=== PATIENT | female | born 1965 | race Caucasian/White ===

== ENCOUNTER → 2017-03-05 13:57 | Emergency (ER) | payer MEDICARE, MEDICAID ==
[~2017-03-05 13:57] MED LIST: Enoxaparin(*) 80 MG/0.8 ML SYR SUBCUT ONE; LORazepam INJ* 2 MG/ML 1 ML VIAL IV PUSH ONE; Ondansetron INJ* 2 MG/ML VIAL IV ONE; Orphenadrine Citrate IV* 30 MG/ML 2 ML VIAL IV ONE; PROCHLORPERAZINE INJ 5 MG/ML 2 ML VIAL IV ONE
[2017-03-05 14:09] VITALS: BP 133/84
--- NOTE | 2017-03-05 15:06 | ED ---
Upper Extremity Pain - HPI Summary HPI Summary: 51 female presents to ED via EMS accompanied by daughter and son with complaints of right arm spasms that began around 11:30am today. She has never had these before. States they come and go, lasting ~ 10 seconds. States it has been becoming more frequent and intense. Originates in right neck area and radiates down. Admits to tingling, in between spasms. Denies history of seizures. Has not taken any medication for the spasms. States she usually wears a fentanyl patch that just had her dosage changed and she took it off yesterday. Just put another two on while in ED. PMHx significant for pancreatic cancer, thyroid disease, fibromyalgia, and RA. No other complaints. No trauma or injury. No tenderness or pain. No other complaints at this time other than feeling a little nauseous, however this is a chronic problem for her. - History of Current Complaint Chief Complaint: EDExtremityUpper Stated Complaint: PAIN IN RT ARM Time Seen by Provider: 03/05/17 14:18 Hx Obtained From: Patient Mechanism Of Injury: Unknown Onset/Duration: Started Hours Ago - 11:30am Timing: Intermittent, Lasting Seconds Severity Currently: Moderate Pain Location: Arm - right Character: Spasmodic Aggravating Factor(s): Movement Alleviating Factor(s): Nothing Associated Signs & Symptoms: Positive: Numbness/Tingling - tingling, Nausea, Vomiting Related History: Dominant Hand Right - Allergies/Home Medications Allergies/Adverse Reactions: Allergies Allergy/AdvReac Type Severity Reaction Status Date / Time Desvenlafaxine [From Pristiq] Allergy Mild Rash Verified 01/24/17 08:22 Home Medications: Home Medications Calcium W/ Vitamins D & K [Viactiv 500-500-40 mg-Unt-Mcg] 1 chw PO DAILY [History Confirmed 03/05/17] Cholecalciferol TAB* [Vitamin D TAB*] 2,000 units PO DAILY 03/05/17 [History Confirmed 03/05/17] Dronabinol CAP* [Marinol CAP*] 5 mg PO TID AC 03/05/17 [History Confirmed ] Eszopiclone (NF) [Lunesta (NF)] 3 mg PO BEDTIME 03/05/17 [History Confirmed 05/11] LevoCETirizine TAB (NF) [Xyzal TAB (NF)] 5 mg PO DAILY 03/05/17 [History Confirmed 03/05/17] Levothyroxine TAB* [Synthroid TAB*] 25 mcg PO DAILY 03/05/17 [History Confirmed 03/05/17] Levothyroxine TAB* [Synthroid TAB*] 200 mcg PO DAILY 03/05/17 [History Confirmed 03/05/17] Magnesium Oxide TAB* [MagOx 400 TAB*] 400 mg PO BID 03/05/17 [History Confirmed 03/05/17] Mirtazapine TAB* [Remeron TAB*] 7.5 mg PO BEDTIME 03/05/17 [History Confirmed ] Potassium Chlor TAB* [Klor Con ER TAB*] 20 meq PO DAILY 03/05/17 [History Confirmed 03/05/17] Sertraline* [Zoloft*] 150 mg PO DAILY 03/05/17 [History Confirmed 03/05/17] Topiramate TAB(*) [Topamax 100 mg tab] 100 mg PO BID 03/05/17 [History Confirmed 03/05/17] buPROPion SR TAB* [Wellbutrin SR TAB*] 450 mg PO QAM 03/05/17 [History Confirmed 03/05/17] fentaNYL PATCH 50 MCG/HR* [Duragesic PATCH 50 Mcg/Hr*] 50 mcg TRANSDERM Q72H [History Confirmed 03/05/17] oxyCODONE TAB* [Roxycodone TAB 5 mg*] 5 mg PO Q4H PRN 03/05/17 [History Confirmed 03/05/17] PMH/Surg Hx/FS Hx/Imm Hx Endocrine/Hematology History: Reports: Hx Thyroid Disease Respiratory History: Reports: Hx Sleep Apnea - current CPAP user GI History: Reports: Hx Gastroesophageal Reflux Disease Musculoskeletal History: Reports: Hx Rheumatoid Arthritis Sensory History: Reports: Hx Contacts or Glasses Opthamlomology History: Reports: Hx Contacts or Glasses Neurological History: Reports: Other Neuro Impairments/Disorders - concussions, fibromyalgia Psychiatric History: Reports: Hx Anxiety, Hx Depression - Cancer History Cancer Type, Location and Year: pancreatic cancer with chemo 2014 - Surgical History Surgery Procedure, Year, and Place: cholecystectomy, C-sections X2, 2001 thyroid surgery. wipple procedure 07/03/14 - Immunization History Immunizations Up to Date: Yes Infectious Disease History: No Infectious Disease History: Denies: Traveled Outside the [place] in Last 30 Days - Family History Known Family History: Positive: Cardiac Disease, Hypertension - Social History Alcohol Use: None Substance Use Type: Reports: None Smoking Status (MU): Former Smoker Review of Systems Constitutional: Negative Cardiovascular: Negative Respiratory: Negative Positive: Nausea Positive: Myalgia - spasms Skin: Negative Positive: Paresthesia - tingling of right arm after spasms All Other Systems Reviewed And Are Negative: Yes Physical Exam Triage Information Reviewed: Yes Vital Signs On Initial Exam: Initial Vitals Temp Pulse Resp BP Pulse Ox 98.0 F 84 18 133/84 100 03/05/17 14:01 03/05/17 14:01 03/05/17 14:01 03/05/17 14:01 03/05/17 14:01 Vital Signs Reviewed: Yes Appearance: Positive: Well-Appearing, No Pain Distress, Well-Nourished Skin: Positive: Warm, Skin Color Reflects Adequate Perfusion, Dry, Other - no ecchymosis or edema. Negative: Cold, Pale, Erythema @ Head/Face: Positive: Normal Head/Face Inspection Eyes: Positive: Conjunctiva Clear ENT: Positive: Hearing grossly normal Neck: Positive: Supple, Nontender Respiratory/Lung Sounds: Positive: Clear to Auscultation, Breath Sounds Present. Negative: Rales, Rhonchi, Wheezes Cardiovascular: Positive: Normal, RRR, Pulses are Symmetrical in both Upper and Lower Extremities - 2+ radial. Negative: Murmur, Rub Abdomen Description: Positive: Nontender, Soft Bowel Sounds: Positive: Present Musculoskeletal: Positive: Normal, Strength/ROM Intact - when not spasmping right arm/shoulder, Pain @ - during right arm muscle spasms, Other - no crepitus , step off, obvious deformity, ecchymosis or signs of trauma appears to be spasming muscles. no tenderness. she is totally coherent during arm spasms, does not appear to be seizure activity. Negative: Limited @, Interruption @ Neurological: Positive: Normal, Sensory/Motor Intact - sensation intact, Alert, Oriented to Person Place, Time, NV Bundle Intact Distally, Normal Gait Psychiatric: Positive: Affect/Mood Appropriate - Egan Coma Scale Coma Scale Total: 15 Diagnostics - Vital Signs Vital Signs Temp Pulse Resp BP Pulse Ox 03/05/17 14:01 98.0 F 84 18 133/84 100 - Laboratory Result Diagrams: 03/05/17 15:40 Lab Statement: Any lab studies that have been ordered have been reviewed, and results considered in the medical decision making process. Re-Evaluation - Re-Evaluation First Eval Re-Evaluation Time: 16:03 Change: Improved - patient had significant relief, has only had 1 spasms since medication, is relaxing comfortable. pending lab results. patient was signed out to Virginia Rubio patient is aware and understands. Course/Dx - Course Course Of Treatment: given norflex, ativan and anti-nausea medication. had relief. patient applied her prescribed fentayl patches while in ED. given fluids for her routine fluid infusion she missed due to having spasms. took her normal daily medicaitons otherwise. normal vitals. CBC CMP and electrolyte lab work obtained, unremarkable. had relief after medications. unknown source/ etiology. does not appear to be seizure or CVA symptoms, ruled out. No other complaints. Spoke with Dr Starr about case, who is in agreement. Patient was signed out to Virginia Rubio PA-C at shift change, pending lab results. - Diagnoses Provider Diagnoses: Muscle spasm - Physician Notifications Discussed Care of Patient With: Virginia Garcia PA-C shift change Time Discussed With Above Provider: 16:00 Discharge - Discharge Plan Condition: Stable Disposition: OTHER Discharge Disposition Comment: signed out to Virginia Rubio PA-C at 4pm at shift change Referrals: Abhinav Lieberman MD [Primary Care Provider] -
[2017-03-05] MEDS: NS 0.9% 1000 ML* 2,000 ML IV ONE (15:10)
[2017-03-05 15:53] LABS: Hematocrit 33 % (35-47); Hemoglobin 11.2 g/dl (12.0-16.0); Mean Corpuscular HGB Conc 34 g/dl (31-36); Mean Corpuscular Hemoglobin 30 pg (27-31); Mean Corpuscular Volume 90 fL (80-97); Mean Platelet Volume 7 um3 (7.4-10.4); Red Blood Count 3.71 10^6/ul (4.0-5.4); Red Cell Distribution Width 14 % (10.5-15); White Blood Count 2.3 10^3/ul (3.5-10.8)
[2017-03-05 16:02] LABS: Add Diff/Slide Review? Slide Review Added; Comments Flag Yes
[2017-03-05 16:09] LABS: Albumin 3.7 g/dL (3.2-5.2); BUN/Creatinine Ratio 15.3 (8-20); EGFR Non-African American 84.7 (>60); Globulin 2.4 g/dL (2-4); Magnesium 1.9 mg/dL (1.9-2.7); Potassium 3.5 mmol/L (3.5-5.0); Total Bilirubin 0.5 mg/dL (0.2-1.0); Total Protein 6.1 g/dL (6.4-8.9)
--- NOTE | 2017-03-05 17:14 | RAD ---
INDICATION: Right upper quadrant pain evaluate for RIGHT-sided thrombosis. Pancreatic carcinoma. COMPARISON: Venogram January 24, 2017 TECHNIQUE: Duplex interrogation of the right upperextremity was performed. FINDINGS: Deep veins: The visualized right internal jugular, visualized subclavian, axillary, brachial, basilic, cephalic, radial, and ulnar There is normal compressibility, augmentation, and phasic flow. Superficial veins: There are no findings of superficial thrombophlebitis. Soft tissues:There are no soft tissue abnormalities. Other: Limited imaging of the left upper extremity demonstrated thrombosis at the level of the subclavian, axial, and brachial veins at the site of PICC catheter insertion. IMPRESSION: 1. NO EVIDENCE OF DEEP VENOUS THROMBOSIS ON THE SYMPTOMATIC RIGHT UPPER EXTREMITY. 2. THROMBOSIS ABOUT THE LEFT-SIDED PICC CATHETER.
--- NOTE | 2017-03-05 17:27 | RAD ---
INDICATION: Neck pain COMPARISON: None TECHNIQUE: AP, lateral, and odontoid views were acquired FINDINGS: Bones: There are no acute bony findings. There are no significant osteoarthritic findings. Craniocervical junction: The odontoid and atlantodental interval are normal. Alignment: Normal Disc spaces: The disc spaces are well-maintained Soft tissues: There is a small soft tissue calcification the right neck which is likely calcific plaque in the carotid artery.. IMPRESSION: NO ACUTE BONY FINDINGS.
== END | disposition home or self-care (01) ==
LOC: ED 13:57
DX: T82.868A Thrombosis due to vascular prosthetic devices, implants and grafts, initial encounter (principal); M62.838 Other muscle spasm; Z87.891 Personal history of nicotine dependence; M79.7 Fibromyalgia; C25.9 Malignant neoplasm of pancreas, unspecified; E07.9 Disorder of thyroid, unspecified; M06.9 Rheumatoid arthritis, unspecified; Y82.8 Other medical devices associated with adverse incidents; Y92.9 Unspecified place or not applicable
CPT/HCPCS: 36415; 72040; 80053; 83605; 83735; 85025; 85610; 85730; 96360; 96374; 96375; 99282; J0780; J1650; J2060; J2360; J2405

== ENCOUNTER 2017-08-12 13:20 | Inpatient (IN) | payer MEDICAID, MEDICARE ==
[2017-08-12] MEDS ORDERED: Lidocaine 2% JELLY* 10 ML JELLY TOPICAL ONE (14:49)
[2017-08-12] MEDS ORDERED: Lidocaine 2% JELLY* 6 ML JELLY TOPICAL ONE (14:51)
[2017-08-12] MEDS: NS 0.9% 1000 ML*IV.FLUID IV ONE ×2 (15:06→17:19)
--- NOTE | 2017-08-12 15:10 | RAD ---
INDICATION: Shortness of breath, pancreatic cancer. COMPARISON: Comparison is made with a prior chest x-ray study from June 08, 2017. TECHNIQUE: AP and lateral views of the chest were obtained. FINDINGS: The heart is within normal limits in size. There is volume loss within the right lung and a right upper lobe infiltrate which is progressed from the prior study. There is a new infiltrate present which projects over the inferior aspect of the left hilum which is likely in the superior segment of the left lower lobe. There is a trace right pleural effusion. IMPRESSION: 1. RIGHT UPPER LOBE INFILTRATE DEMONSTRATING SLIGHT PROGRESSION. 2. NEW LEFT LOWER LOBE INFILTRATE. 3. TRACE RIGHT PLEURAL EFFUSION.
[2017-08-12 15:18] LABS: Hematocrit 31 % (35-47); Hemoglobin 10.2 g/dl (12.0-16.0); Mean Corpuscular HGB Conc 33 g/dl (31-36); Mean Corpuscular Hemoglobin 31 pg (27-31); Mean Corpuscular Volume 94 fL (80-97); Mean Platelet Volume 7 um3 (7.4-10.4); Platelet Count 222 10^3/ul (150-450); Red Blood Count 3.29 10^6/ul (4.0-5.4); Red Cell Distribution Width 19 % (10.5-15); White Blood Count 5.5 10^3/ul (3.5-10.8)
[2017-08-12 15:24] LABS: ABS Basophils 0 10^3/ul (0-0.2); ABS Eosinophils 0 10^3/ul (0-0.6); ABS Lymphocytes 0.9 10^3/ul (1.0-4.8); ABS Monocytes 0.4 10^3/ul (0-0.8); ABS Neutrophils 4.3 10^3/ul (1.5-7.7); ABS Nucleated RBC 0 10^3/ul; Eosinophil % 0.2 % (0-6); Lymphocyte % 15.9 % (25-47); Nucleated Red Blood Cells % 0.1
[2017-08-12 15:35] LABS: EGFR Non-African American 108.7 (>60)
[2017-08-12] MEDS ORDERED: Iohexol 350* (CONTRAST) 500 ML MDV IV ONE (15:49)
[2017-08-12] MEDS ORDERED: Prochlorperazine TAB* 10 MG PO PRN (16:56)
[2017-08-12] MEDS ORDERED: Ondansetron TAB* 4 MG PO PRN (16:56)
[2017-08-12] MEDS ORDERED: Azithromycin IV(*) 500 MG in NS 0.9% 250 ML* 250 ML IVPB SCH (17:00)
[2017-08-12] MEDS ORDERED: cefTRIAXone(*) 2 GM in NS 0.9% 100 ML* 100 ML IVPB SCH (17:00)
[2017-08-12] MEDS ORDERED: Acetaminophen TAB* 325 MG PO PRN (17:04)
[2017-08-12] MEDS ORDERED: cefTRIAXone(*) 2 GM ADDV.VIAL IVPB ONE (17:18)
--- NOTE | 2017-08-12 17:33 | RAD ---
INDICATION: Shortness of breath, pancreatic cancer, fever. COMPARISON: Comparison is made with a prior chest x-ray study from August 12, 2017. Correlation is also made with a prior CT angiogram of the chest from June 06, 2017. TECHNIQUE: A CT angiogram of the chest was performed with intravenous following intravenous injection of 50 ml of Omnipaque 350 nonionic contrast. Contiguous axial sections were obtained from the lung apices through the lung bases. Images were reconstructed in the coronal and sagittal planes. The patient received a total of 100 mL of contrast. The timing of the contrast on the first data set was suboptimal in the study was repeated. FINDINGS: There is relatively homogeneous opacification of the pulmonary arteries. No intraluminal filling defect or pulmonary embolism is seen. The heart is within normal limits in size. There is a trace pericardial effusion. The thoracic aorta is normal in caliber and demonstrates homogeneous contrast opacification. 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 Note is made of multiple collateral vessels within the chest, abdomen and perivertebral regions. On the prior study contrast is noted within the azygos vein which is no longer visualized and likely is also occluded. There is increased soft tissue density in the mediastinum some of which appears to represent collateral vessels although mediastinal lymphadenopathy cannot be excluded. There is a moderate size right pleural effusion. There are groundglass and consolidative infiltrates present in the right upper, right lower and left lower lobes most consistent with pneumonia. No significant focal osseous abnormality is seen. IMPRESSION: 1. NO EVIDENCE FOR PULMONARY EMBOLISM. 2. MODERATE SIZE RIGHT PLEURAL EFFUSION AND BILATERAL INFILTRATES MOST CONSISTENT WITH PNEUMONIA. 3. TRACE PERICARDIAL EFFUSION, UNCHANGED. 4. OCCLUSION OF THE SUPERIOR VENA CAVA, UNCHANGED.
[2017-08-12] MEDS ORDERED: Azithromycin IV* 500 MG ADVAN VIAL/BAG IVPB ONE (17:52)
[2017-08-12] MEDS: NS 0.9% 1000 ML* 1,000 ML IV SCH (18:15)
[2017-08-12] MEDS ORDERED: fentaNYL PATCH 12 MCG/HR TRANSDERM SCH (18:30)
[2017-08-12] MEDS: fentaNYL Patch Check Q Shift 1 NOTE SCH ×2 (19:30→21:04)
[2017-08-12] MEDS: buPROPion SR TAB.SR* 150 MG PO SCH (20:45)
[2017-08-12] MEDS: Mirtazapine TAB* 15 MG PO SCH (20:45)
[2017-08-12] MEDS: Sertraline* 100 MG TAB PO SCH (20:46)
[2017-08-12] MEDS: Topiramate TAB(*) 100 MG PO SCH (21:05)
--- NOTE | 2017-08-12 21:17 | ED ---
Lamberto Garcia Jason, scribed for Jamaica Gaviria MD on 08/12/17 at 1356 . Shortness of Breath - HPI Summary HPI Summary: This patient is a 51 year old F presenting to [facility] with a chief complaint of SOB since 2 days ago. The patient states that she has been experiencing diarrhea for 2 days and began to experience shortness of breath. She includes that she had a blood transfusion 08/09/17 nights ago and has a hx of blood clots and pancreatic cancer. She began chemotherapy in February and her last chemotherapy was 07/19/17. The patient rates the pain 5/10 in severity. Symptoms aggravated by nothing. Symptoms alleviated by nothing. Patient reports SOB, coughing, fever, diarrhea, weakness, feeling tired, chills, dry mouth, dehydration and blood boogers. Patient denies vomiting, loss of appetite. She is up to date on the flu vaccine. - History of Current Complaint Chief Complaint: EDShortnessOfBreath Time Seen by Provider: 08/12/17 13:45 Hx Obtained From: Patient Onset/Duration: Gradual Onset Timing: Constant Aggrevating Factors: Nothing Alleviating Factors: Nothing Associated Signs & Symptoms: Negative - vomiting, loss of appetite, Cough ( Nonproductive), Fever - Allergy/Home Medications Allergies/Adverse Reactions: Allergies Allergy/AdvReac Type Severity Reaction Status Date / Time desvenlafaxine Allergy Mild Rash Verified 08/10/17 13:34 Home Medications: Home Medications Diphenoxylat/Atrop 2.5-0.025M* [Lomotil TAB*] 1 tab PO BID MDD 2 tablets [History Confirmed 08/12/17] Eszopiclone (NF) [Lunesta (NF)] 3 mg PO DAILY MDD 1 08/12/17 [History Confirmed 08/12/17] Gabapentin CAP(*) [Neurontin 300 CAP(*)] 300 mg PO BID 08/12/17 [History Confirmed 08/12/17] Multivitamins/Minerals TAB* [Thera M Plus TAB*] 1 tab PO DAILY 08/12/17 [ History Confirmed 08/12/17] Ondansetron TAB* [Zofran 4 MG Tab*] 4 mg PO Q4HR PRN 08/12/17 [History Confirmed 08/12/17] Sertraline* [Zoloft*] 150 mg PO BEDTIME 08/12/17 [History Confirmed 08/12/17] Warfarin TAB(*) [Coumadin TAB(*)] 4 mg PO MOWEFR 08/12/17 [History Confirmed ] fentaNYL PATCH 12 MCG/HR * [Duragesic Patch 12 Mcg/Hr *] 12 mcg TRANSDERM Q72H 08/12/17 [History Confirmed 08/12/17] fentaNYL PATCH 25 MCG/HR* [Duragesic PATCH 25 Mcg/Hr*] 25 mcg TRANSDERM Q72H [History Confirmed 08/12/17] PMH/Surg Hx/FS Hx/Imm Hx Previously Healthy: No Endocrine/Hematology History: Reports: Hx Thyroid Disease Denies: Hx Diabetes Cardiovascular History: Denies: Hx Hypertension, Hx Pacemaker/ICD Respiratory History: Reports: Hx Sleep Apnea - current CPAP user GI History: Reports: Hx Gastroesophageal Reflux Disease History: Denies: Hx Dialysis, Hx Renal Disease Musculoskeletal History: Reports: Hx Rheumatoid Arthritis Sensory History: Reports: Hx Contacts or Glasses, Hx Hearing Aid Opthamlomology History: Reports: Hx Contacts or Glasses Neurological History: Reports: Other Neuro Impairments/Disorders - concussions, fibromyalgia Psychiatric History: Reports: Hx Anxiety, Hx Depression Denies: Hx Panic Disorder - Cancer History Cancer Type, Location and Year: pancreatic cancer with chemo 2014. CURRENT CHEMO TX EVERY TWO WEEKS. - Surgical History Surgery Procedure, Year, and Place: cholecystectomy, C-sections X2, 2001 thyroid surgery. wipple procedure 07/03/14, PORT PLACEMENT, BILATERAL CARPAL TUNNEL Infectious Disease History: No Infectious Disease History: Denies: Traveled Outside the [place] in Last 30 Days - Family History Known Family History: Positive: Cardiac Disease, Hypertension - Social History Alcohol Use: None Substance Use Type: Reports: None Smoking Status (MU): Former Smoker Review of Systems Positive: Fever - 100.3 degrees, Chills, Other - "feeling dehydrated with blood boogers" ENT: Other - dry mouth Positive: Shortness Of Breath, Cough - non productive Gastrointestinal: Negative - loss of appetite Positive: Diarrhea, Other. Negative: Vomiting Positive: Weakness All Other Systems Reviewed And Are Negative: Yes Physical Exam - Summary Physical Exam Summary: Appearance: Ill-appearing, emaciated, moderate pain distress, Well-nourished Skin: Warm, color reflects adequate perfusion. No rash. Head: Normal Head/Face inspection Eyes: Conjunctiva clear ENT: Normal inspection, oral mucosa is moist. Dried blood at the nares. Neck: Supple, no nodes, no JVD. Respiratory: Lungs clear, decreased breath sounds bilaterally, no respiratory distress Cardio: RRR, No murmur, pulses normal, brisk capillary refill Abdomen: soft, nontender, Her port is in the right upper quadrant of the abdomen. Bowel sounds: present Musculoskeletal: Strength Intact/ ROM intact. No calf tenderness. No edema. Neuro: Alert, muscle tone normal, facial symmetry, speech normal, sensory/motor intact Psychological: Normal Triage Information Reviewed: Yes Vital Signs On Initial Exam: Initial Vitals Temp Pulse Resp BP Pulse Ox 99.5 F 100 22 116/70 98 08/12/17 13:25 08/12/17 13:25 08/12/17 13:25 08/12/17 13:25 08/12/17 13:25 Vital Signs Reviewed: Yes Diagnostics - Vital Signs Vital Signs Temp Pulse Resp BP Pulse Ox 08/12/17 13:25 99.5 F 100 22 116/70 98 - Laboratory Lab Results: Lab Results 08/12/17 08/12/17 08/12/17 Range/Units 15:05 15:05 15:05 WBC 5.5 (3.5-10.8) 10^3/ul RBC 3.29 L (4.0-5.4) 10^6/ul Hgb 10.2 L (12.0-16.0) g/dl Hct 31 L (35-47) % MCV 94 (80-97) fL MCH 31 (27-31) pg MCHC 33 (31-36) g/dl RDW 19 H (10.5-15) % Plt Count 222 (150-450) 10^3/ul MPV 7 L (7.4-10.4) um3 Neut % (Auto) 77.0 (38-83) % Lymph % (Auto) 15.9 L (25-47) % Free[place] % (Auto) 6.6 (1-9) % Eos % (Auto) 0.2 (0-6) % Baso % (Auto) 0.3 (0-2) % Absolute Neuts (auto) 4.3 (1.5-7.7) 10^3/ul Absolute Lymphs (auto) 0.9 L (1.0-4.8) 10^3/ul Absolute Monos (auto) 0.4 (0-0.8) 10^3/ul Absolute Eos (auto) 0 (0-0.6) 10^3/ul Absolute Basos (auto) 0 (0-0.2) 10^3/ul Absolute Nucleated RBC 0 10^3/ul Nucleated RBC % 0.1 ESR 62 H (0-30) mm/Hr INR (Anticoag Therapy) (0.77-1.02) APTT (26.0-36.3) seconds Sodium 136 (133-145) mmol/L Potassium 3.3 L (3.5-5.0) mmol/L Chloride 109 (101-111) mmol/L Carbon Dioxide 18 L (22-32) mmol/L Anion Gap 9 (2-11) mmol/L BUN 9 (6-24) mg/dL Creatinine 0.58 (0.51-0.95) mg/dL Est GFR ( Amer) 139.9 (>60) Est GFR (Non-Af Amer) 108.7 (>60) BUN/Creatinine Ratio 15.5 (8-20) Glucose 78 (70-100) mg/dL Lactic Acid 0.7 (0.5-2.0) mmol/L Calcium 8.6 (8.6-10.3) mg/dL Total Bilirubin 0.60 (0.2-1.0) mg/dL AST 16 (13-39) U/L ALT 19 (7-52) U/L Alkaline Phosphatase 93 (34-104) U/L Troponin I 0.00 (<0.04) ng/mL Total Protein 5.9 L (6.4-8.9) g/dL Albumin 3.0 L (3.2-5.2) g/dL Globulin 2.9 (2-4) g/dL Albumin/Globulin Ratio 1.0 (1-3) 08/12/17 Range/Units 15:05 WBC (3.5-10.8) 10^3/ul RBC (4.0-5.4) 10^6/ul Hgb (12.0-16.0) g/dl Hct (35-47) % MCV (80-97) fL MCH (27-31) pg MCHC (31-36) g/dl RDW (10.5-15) % Plt Count (150-450) 10^3/ul MPV (7.4-10.4) um3 Neut % (Auto) (38-83) % Lymph % (Auto) (25-47) % Freeborn % (Auto) (1-9) % Eos % (Auto) (0-6) % Baso % (Auto) (0-2) % Absolute Neuts (auto) (1.5-7.7) 10^3/ul Absolute Lymphs (auto) (1.0-4.8) 10^3/ul Absolute Monos (auto) (0-0.8) 10^3/ul Absolute Eos (auto) (0-0.6) 10^3/ul Absolute Basos (auto) (0-0.2) 10^3/ul Absolute Nucleated RBC 10^3/ul Nucleated RBC % ESR (0-30) mm/Hr INR (Anticoag Therapy) 2.00 H (0.77-1.02) APTT 39.2 H (26.0-36.3) seconds Sodium (133-145) mmol/L Potassium (3.5-5.0) mmol/L Chloride (101-111) mmol/L Carbon Dioxide (22-32) mmol/L Anion Gap (2-11) mmol/L BUN (6-24) mg/dL Creatinine (0.51-0.95) mg/dL Est GFR ( Amer) (>60) Est GFR (Non-Af Amer) (>60) BUN/Creatinine Ratio (8-20) Glucose (70-100) mg/dL Lactic Acid (0.5-2.0) mmol/L Calcium (8.6-10.3) mg/dL Total Bilirubin (0.2-1.0) mg/dL AST (13-39) U/L ALT (7-52) U/L Alkaline Phosphatase (34-104) U/L Troponin I (<0.04) ng/mL Total Protein (6.4-8.9) g/dL Albumin (3.2-5.2) g/dL Globulin (2-4) g/dL Albumin/Globulin Ratio (1-3) Result Diagrams: 08/12/17 15:05 08/12/17 15:05 Lab Statement: Any lab studies that have been ordered have been reviewed, and results considered in the medical decision making process. - Radiology CXR Radiology Interpretation Completed By: Radiologist - 1. RIGHT UPPER LOBE INFILTRATE DEMONSTRATING SLIGHT PROGRESSION. 2. NEW LEFT LOWER LOBE INFILTRATE. 3. TRACE RIGHT PLEURAL EFFUSION. ED physician has reviewed this radiology report. - CT chest CT Interpretation Completed By: Radiologist - 1. NO EVIDENCE FOR PULMONARY EMBOLISM. 2. MODERATE SIZE RIGHT PLEURAL EFFUSION AND BILATERAL INFILTRATES MOST CONSISTENT WITH PNEUMONIA. 3. TRACE PERICARDIAL EFFUSION, UNCHANGED. 4. OCCLUSION OF THE SUPERIOR VENA CAVA, UNCHANGED. ED physician has reviewed this radiology report - EKG 1423 Cardiac Rate: NL EKG Rhythm: Sinus Rhythm - [address] Segment: Non-Specific Ectopy: None EKG Interpretation: normal AVIVCT, normal QTc, normal axis EKG Comparison: No Significant Change - from 06/05/2017 Re-Evaluation - Re-Evaluation First Eval Re-Evaluation Time: 15:15 Change: Worse Comment: The patient's temperature is 100.4 degrees farenheit. Course/Dx - Course Course Of Treatment: Influenza A and B test results are negative. We discussed patient care with Dr. Nava and they recommended admission. We informed the patient of the EKG and CXR results and discusses Dr. Blake recommendation. The patient is agreeable with this plan. Medications reviewed. Allergies noted. - Diagnoses Provider Diagnoses: Bilateral pneumonia, Pleural effusion, right Discharge - Discharge Plan Condition: Good Disposition: ADMITTED TO [facility] documentation as recorded by the Lamberto doran Jason accurately reflects the service I personally performed and the decisions made by , Jamaica Gaviria MD.
[2017-08-12 21:22] LABS: Urine Appearance Clear; Urine Blood Negative (Negative); Urine Color Yellow; Urine Ketones Negative (Negative); Urine Protein Negative (Negative); Urine Specific Gravity 1.045 (1.010-1.030); Urine Urobilinogen Negative (Negative)
[2017-08-12] MEDS ORDERED: Potassium Chlor TAB* 20 MEQ TAB.ER PO ONE (22:32)
[2017-08-13] MEDS: NS 0.9% 1000 ML* 1,000 ML IV SCH ×4 (05:23→17:59)
[2017-08-13] MEDS ORDERED: Levothyroxine TAB* 125 MCG TAB PO SCH (06:00)
[2017-08-13 06:42] LABS: EGFR Non-African American 100.7 (>60)
[2017-08-13 06:44] LABS: ABS Basophils 0 10^3/ul (0-0.2); ABS Eosinophils 0 10^3/ul (0-0.6); ABS Lymphocytes 0.7 10^3/ul (1.0-4.8); ABS Monocytes 0.4 10^3/ul (0-0.8); ABS Neutrophils 4.8 10^3/ul (1.5-7.7); ABS Nucleated RBC 0 10^3/ul; Eosinophil % 0.6 % (0-6); Hematocrit 31 % (35-47); Hemoglobin 10.2 g/dl (12.0-16.0); Lymphocyte % 11.5 % (25-47); Mean Corpuscular HGB Conc 34 g/dl (31-36); Mean Corpuscular Hemoglobin 32 pg (27-31); Mean Corpuscular Volume 94 fL (80-97); Mean Platelet Volume 7 um3 (7.4-10.4); Nucleated Red Blood Cells % 0; Platelet Count 244 10^3/ul (150-450); Red Blood Count 3.23 10^6/ul (4.0-5.4); Red Cell Distribution Width 18 % (10.5-15); White Blood Count 5.9 10^3/ul (3.5-10.8)
[2017-08-13 06:55] LABS: INR 1.73 (0.77-1.02)
[2017-08-13] MEDS: fentaNYL Patch Check Q Shift 1 NOTE SCH ×2 (06:59→18:51)
--- NOTE | 2017-08-13 09:01 | HP ---
HISTORY AND PHYSICAL: DATE OF ADMISSION: 08/12/17 - ROOM #420 REASON FOR ADMISSION: Shortness of breath, confusion, diarrhea in the setting of known metastatic pancreatic cancer. HISTORY OF PRESENT ILLNESS: Josefina Womack is a 51-year-old female with a diagnosis of pancreatic cancer 3 years ago and has been followed in our office by Dr. Dan since December 2016. It was at that time, that she was discovered to have metastatic carcinoma. She received chemotherapy for limited amount of metastatic disease with FOLFIRINOX with irinotecan stopping after cycle 5 and therapy stopping after cycle 10 on 06/26/17 due to increasing nausea, vomiting, and extreme fatigue. She has done reasonably well since that period of time until the last week or so. She had laboratory studies done last on . At that time, she was found to have an elevated INR at 4.37 even though her previous INRs with same dose of Coumadin have all been subtherapeutic. At the same time, she was found to have a significant increase in anemia with her H and H being down from approximately 9, down to 7.6. She received a total of 3 units of packed red blood cells, although one of the units was stopped early due to fever to 101.8. She had no other signs of infection at that time and subsequently her hemoglobin had come up to 10.2. She noticed the following day on 08/10/17 that she had increasing confusion and decreased coordination although this had been going on for approximately 1 week and progressing. She reports the last day or two, this has been slightly better. She typically walks independently, although she has fallen several times over the past 1 to 2 weeks. Her speech is more slurred recently as well. She is not aware that one side is weaker than the other. She has had some headache above the eye still present, but helped by Advil. Because of this, an MRI of the brain was obtained 2 days ago, which did not reveal any significant abnormalities. Over the past 48 hours, she has developed diarrhea along with increasing shortness of breath despite having had the blood transfusion. She is having a pain, which she rates as 5/10, mostly in the chest. This has been present for about 1 month, but increasing recently. Her breathing is more labored, not worse today, but worse over the last 1 to 2 weeks. She has had a dry cough. She was unaware of the fever at any point other than during the blood transfusion until arriving in the emergency room, when she was found to have a temperature of 100.4. It should be noted that she was not taking her temperature at home. She denies any nausea, vomiting or abdominal pain. She was found in the emergency room on chest x-ray to have a persistent infiltrate, although somewhat improved in the right upper lobe and to have a simultaneous left lower lobe infiltrate. PAST MEDICAL HISTORY: In regard to the pancreatic carcinoma, she had abdominal pain and fatigue in 2013 and was evaluated by GI in [place] and found to have pancreatic carcinoma. She had surgery on 07/03/14 revealing a mildly differentiated pancreatic adenocarcinoma 3 cm with negative margins and negative lymph nodes, [id number]. She had 4 weeks of postoperative TPN. She had no adjuvant chemotherapy. She was followed by routine CT scans every 3 months until June 2016 when she developed abdominal pain as well as feeling much more weak and fatigue. Pain was rated as 7/10. CT scan in the spring was unremarkable. She also had an MRI of the abdomen and an endoscopic ultrasound, which were unrevealing. PET scan of 12/14/16 showed soft tissue lesions in the anterior abdominal wall with an elevated SUV of 11, one of the lesions was adjacent to the ascending colon with an elevated SUV at 16. In addition, there was a 1 cm right lower quadrant lesion with an SUV of 7. There were no abnormalities noted in the liver or other organs. She was planned to have Gemzar and Abraxane in [place], but then sought second opinion at [facility] in [facility] and with Dr. Ni huddleston in [place]. After she was felt not to be a candidate for a clinical trial at [facility], she was started on chemotherapy with FOLFIRINOX on 02/12/17. PET scan after cycle 3 revealed complete response in the abdomen. Irinotecan was stopped after cycle 5. Repeat PET scan in June 2017 revealed continued complete response. Therapy has been held since 06/26/17. In the midst of this therapy, she was planned to have an Rdsil-k-Htaz placed, but on the imaging studies done by Dr. Davila while trying to place the central line, she was found to have significant clot present and blocked vessels. She was placed on Coumadin. This was back in January 2017 with a blocked SVC. In February 2017, she was found to have thrombus around her PICC line. She has been on Coumadin since early in the fall and has had therapeutic levels for the most part until recently, and then as noted above with markedly elevated level of 4, three days ago. Associated with this, she had the anemia, which was much more than before. She denies any bleeding other than occasional nose bleeds. Approximately 1 month ago, a port was put in the abdomen as she was unable to have a port in the chest due to her superior vena cava blockage. She has had some infections including likely pneumonia, although she and her daughter do not remember the details, although believes this may have been around May. Past medical history otherwise significant for depression, cholelithiasis, hyperthyroidism, and hypothyroidism now that she is status post radiation therapy. History of rheumatoid arthritis and SLE. Status post cholecystectomy. Status post Whipple surgery in 2014, status post . FAMILY HISTORY: Father with prostate cancer. No other cancers in the family. SOCIAL HISTORY: The patient is single, quit smoking 9 years ago. Smoked a pack per day for 26 years. Occasional alcohol. 2 children, one living nearby in [place] near [facility]. Has a good support system in place with siblings. She is not working. She lives with a significant other, Zackery Deras. MEDICATIONS: At the present time include: 1. Aspirin 81 mg daily. 2. Cholecalciferol 2000 units daily. 3. Fentanyl patch, unclear whether she takes 12 or 25 mcg every 3 days and she gives a confusing story of using 1 patch for 3 days and then alternating with the other just recently. 4. Levothyroxine 250 mcg daily. 5. Lunesta 3 mg at h.s. 6. Omeprazole 40 mg daily. 7. Oxycodone 5 mg q. 4 hours p.r.n. 8. Plaquenil 200 mg daily. 9. Topiramate 100 mg b.i.d.. 10. Viactiv 1 tablet daily. 11. Wellbutrin 450 mg SR daily. 12. Xyzal 5 mg daily. 13. Zoloft 150 mg daily. 14. Mirtazapine 15 mg daily. 15. Zofran 4 mg q. 4 hours p.r.n. 16. Coumadin 4 mg daily, held since 3 days ago. 17. Compazine 10 mg p.r.n. ALLERGIES: No known drug allergies other than to PRISTIQ. REVIEW OF SYSTEMS: Weight has actually improved recently, it went down to 88 pounds; then she stopped chemotherapy and is now up to 95 and her diarrhea had stopped and recently resumed. She has had no nausea, vomiting or abdominal pain , just recently. Neurologic complaints, as discussed above. Respiratory and cardiac symptoms as described above as well. The patient describes some tingling in her fingertips on trial of carboplatin, tried the gabapentin, but stopped it due to severe drug side effects including "driving me crazy." PHYSICAL EXAMINATION GENERAL: A 51-year-old female in no acute distress. Appears slightly emaciated , but in no acute distress. VITAL SIGNS: Blood pressure 116/70, pulse 100, O2 saturation 98%. T-max 100.4 and temperature 99.5. HEENT: PERRL. Dry mucus membranes and dried blood in the nares. No palpable cervical, supraclavicular, or axillary adenopathy. LUNGS: Clear. No rales, wheezes or rhonchi. HEART: Regular rate and rhythm without murmurs, rubs, or gallops. ABDOMEN: Soft, nontender without guarding or rebound. No masses or organomegaly. Port in the right upper quadrant of the abdomen. EXTREMITIES: No clubbing, cyanosis or edema. BACK: No CVA or spinal tenderness. NEUROLOGIC: Exam, the patient is alert and oriented x3. Speech is somewhat slurred and per her family, not at her usual. She does show some significant weakness in bilateral extremities, more so weakness in the lower extremities, but are fairly symmetric. Sensation is intact throughout. Cranial nerves II through XII are intact although there might be a slight facial asymmetry. DIAGNOSTIC STUDIES/LAB DATA: CBC with a white count of 5500, hematocrit 31, hemoglobin 10.2, platelet count 222,000 with an essentially normal machine differential. Chemistry studies: Sodium 136, potassium 3.3, bicarb 18, chloride 109, BUN 9, creatinine 0.58, glucose 78. Lactic acid 1.2. Magnesium 1.7 three days ago. LFTs otherwise normal, albumin of 3.0. Previous TSH 0.09 on 07/31/17. INR of 2.0, having been over 4 three days ago and Coumadin held since. Urinalysis with a high specific gravity of 1.045, but otherwise negative. Rapid influenza is negative. Microbiology cultures pending. Chest x-ray as noted above reveals an infiltrate that is improving in the right upper lobe and a new left lower lobe infiltrate. CTA performed revealing no evidence of pulmonary emboli. Bilateral pulmonary infiltrates. These are present in the right upper lobe and in the left lower lobe. In addition, there is occlusion of the superior venous cava which seems similar to prior exams. There are multiple collateral vessels present within the chest, with a moderate sized right pleural effusion. No evidence of metastatic disease. Small pericardial effusion is present. IMPRESSION: 1. Constellation of symptoms, which are difficult to put together into a single recent disease process. She does have bilateral infiltrates which are worse, especially on the left. This is associated with shortness of breath, chest pain, nonproductive cough, and fever, certainly consistent with a pneumonia. She has been started empirically on antibiotics for community- acquired pneumonia with ceftriaxone 2 g daily along with Zithromax 500 mg IV daily. 2. Recent increased confusion and decreased coordination. Recent MRI of the brain was unremarkable, but her family does report some increase in slurred speech. Neurologic consultation will be obtained on 08/13/17 to further work this up. She has also had a recent headache over the right eye, which is helped with Advil. 3. Recent drop in her hematocrit associated with an elevated INR at a time when her dose of Coumadin had not changed and when she had not had significant bleeding or bruising episodes. It is unclear as to why this happened. She, currently has an INR 2.0 and I will have it rechecked again in the morning and it is likely that she will be resumed on her Coumadin at the typical dose of 4 mg daily. She is known to have a superior vena cava blockage and this is still present on her current imaging. 4. Pancreatic carcinoma. She currently has no reactive disease on most recent imaging and has been off chemotherapy for approximately 6 weeks. 5. Pain under good control. Takes, per her telling, a very strange regimen of narcotics, we will try after discussion with Dr. Dan. 6. History of depression. On Zoloft and Wellbutrin. 7. History of hypothyroidism. On 250 mcg of levothyroxine a day. Level will be rechecked, most recent was 0.09 two weeks ago. 8. History of rheumatologic conditions and has been on Plaquenil. [id number]/[facility] #: [id number] [facility]
[2017-08-13] MEDS: buPROPion SR TAB.SR* 150 MG PO SCH ×2 (09:13→20:01)
[2017-08-13] MEDS: Cholecalciferol TAB* 1000 UNITS PO SCH (09:13)
[2017-08-13] MEDS: Omeprazole CAP* 20 MG PO SCH (09:13)
[2017-08-13] MEDS: Cetirizine* 10 MG TAB PO SCH (09:14)
[2017-08-13] MEDS: Topiramate TAB(*) 100 MG PO SCH ×2 (09:21→20:02)
[2017-08-13] MEDS ORDERED: Diphenoxylat/Atrop 2.5-0.025M* 1 TAB PO PRN (10:00)
[2017-08-13] MEDS: Potassium Chlor TAB* 20 MEQ TAB.ER PO SCH ×2 (10:50→20:01)
[2017-08-13] MEDS: Warfarin TAB(*) 4 MG PO SCH (16:59)
[2017-08-13] MEDS: Mirtazapine TAB* 15 MG PO SCH (16:59)
[2017-08-13] MEDS: cefTRIAXone(*) 2 GM in NS 0.9% 100 ML* 100 ML IVPB SCH (16:59)
[2017-08-13] MEDS: Azithromycin IV(*) 500 MG in NS 0.9% 250 ML* 250 ML IVPB SCH (17:59)
[2017-08-13] MEDS: Sertraline* 100 MG TAB PO SCH (19:59)
--- NOTE | 2017-08-13 21:03 | CONS ---
CONSULTATION REPORT: DATE OF CONSULT: 08/13/17 PATIENT OF: Dr. Nava. HISTORY OF PRESENT ILLNESS: This is a 51-year-old woman, asked to evaluate for confusion, hallucinations, and imbalance in the setting of diarrhea and metastatic pancreatic cancer. She notes that she began having hallucinations where she would see a car coming to her while she was driving with a friend and the car was not coming. She would also carry on conversations with people, who were not there and could hear and see them. This was happening over the course of last week and was getting worse and therefore she had an MRI scan done. She had some confusion and somewhat disoriented. She had some progressive shortness of breath, which was actually why she was brought in by family yesterday and was found to have a pneumonia. Her sister who is with her at bedside notes that she is much less confused now then she was even yesterday. She has had a past history of hallucinations and confusion at the time of a concussion; she had episode for concussion and that was about 6 years ago and she had some mild white matter disease back then as well. She has had no overt seizures ever. Of note, she has been more unsteady on her feet and had to touch the wall. This was happening last week again. She is somewhat better today. She has a history of numbness and tingling in the hands and feet that have been attributed to her chemotherapy, but the numbness and tingling have not worsened in the past few weeks' time. She did have a low- grade fever to 100.5, but is currently afebrile. She presented with her pancreatic cancer 3 years ago and was found to have metastatic carcinoma in December of 2016, receiving chemotherapy as outlined by Dr. Nava. She has also had some diarrhea most recently and has had infiltrates on her chest x-ray. PAST MEDICAL HISTORY: Significant for her pancreatic cancer, chest wall lesions on a November 2016 PET scan. She has a history of depression, cholecystitis, hyperthyroidism, hypothyroidism , history of rheumatoid arthritis, and SLE. PAST SURGICAL HISTORY: She is status post Whipple's procedure in 2014 and C- section. MEDICATIONS: Upon admission include: 1. Aspirin 81 mg daily. 2. Calciferol 1000 units daily. 3. Fentanyl patch. 4. Levothyroxine 250 mcg daily. 5. Lunesta 3 mg at bedtime. 6. Omeprazole 40 mg daily. 7. Oxycodone 5 mg p.r.n. 8. Plaquenil 200 mg daily. 9. Topamax 100 b.i.d. 10. Viactiv 1 tab daily. 11. Wellbutrin 450 q. day. 12. Xyzal 5 mg daily. 13. Zoloft 150 mg daily. 14. Mirtazapine 15 mg daily. 15. Zofran 4 mg p.r.n. 16. Coumadin 4 mg daily, held since 3 days ago. 17. Compazine 10 mg p.r.n. ALLERGIES: She is allergic to PRISTIQ. FAMILY HISTORY: Father with prostate cancer. No other cancers in the family. SOCIAL HISTORY: She is single and quit smoking 9 years ago, but smoked a pack a day for 26 years. She does not drink or use drugs. REVIEW OF SYSTEMS: Significant for her weight loss, but actually improved recently. She has had some diarrhea that has been intermittent and respiratory symptoms and neurological complaints as noted above. Otherwise, review of systems, all 14 spheres, is negative. PHYSICAL EXAM: Temperature 98.2, pulse 79, respirations 20, blood pressure 116/ 67. She is alert and oriented. She knew not only her place that she was at [facility] but that she was on the 4th floor. She knew her age and date. Her speech is fluent with good naming of things and she and her sister agreed that she was back to her baseline or very close back to her baseline; this is a significant improvement. Cranial nerves II through XII were intact. Fundi were benign. Motor exam revealed normal tone. She was generally debilitated, but strength appeared full 5/5. [id number]-[id number] is intact. She is mildly unsteady on her Romberg, but she felt more steady on her feet than she has in the recent past. Reflexes were 1 and equal. Sensation is intact to light touch. Chest: Clear. Cardiovascular: Regular rate and rhythm. Abdomen: Soft with positive bowel sounds. DIAGNOSTIC STUDIES/LAB DATA: I reviewed her MRI scan from Sunday with and without contrast, which showed some mild white matter disease, no enhancing lesions. Her recent labs showed a white count of 5.9, hematocrit 31, platelet count of 244. Sed rate of 62. INR 1.73, PTT 39.2. TSH 0.12. Her potassium was 3.4. Most recently CMP was normal other than albumin of 3, total protein of 5.9. Influenza testing negative. UA was negative other than specific gravity of 1.045. ASSESSMENT AND PLAN: I discussed with Josefina and her sister that I think her confusion, disorientation, and hallucinations were probably from pneumonia and she is significantly better now that she is being treated with antibiotics including azithromycin and she has tendency towards hallucinations in the past when she had her concussion and when she has other medical conditions, it may cause this problem and it could have exacerbated underlying neuropathy as well that she had with from her chemotherapy. I will check an EEG to screen for seizures. I discussed that there are other possibilities such as paraneoplastic syndrome or subacute meningitis, but these are extremely unlikely given the time course that she has, but unless she fluctuates and goes on to have significant hallucinations, disorientation, I would not pursue these other things in the near future. Thank you for sharing her case. [id number]/[facility] #: [id number] NICK
[2017-08-13] MEDS: Zolpidem TAB* 10 MG PO PRN (21:07)
[2017-08-14] MEDS: Levothyroxine TAB* 125 MCG TAB PO SCH (05:44)
[2017-08-14] MEDS: Levothyroxine TAB* 100 MCG TAB PO SCH (05:44)
[2017-08-14] MEDS: fentaNYL Patch Check Q Shift 1 NOTE SCH ×2 (06:58→18:48)
[2017-08-14 07:26] LABS: ABS Basophils 0 10^3/ul (0-0.2); ABS Eosinophils 0.1 10^3/ul (0-0.6); ABS Lymphocytes 0.8 10^3/ul (1.0-4.8); ABS Monocytes 0.3 10^3/ul (0-0.8); ABS Neutrophils 3.6 10^3/ul (1.5-7.7); ABS Nucleated RBC 0 10^3/ul; Eosinophil % 1.7 % (0-6); Hematocrit 33 % (35-47); Hemoglobin 11.1 g/dl (12.0-16.0); Lymphocyte % 16.6 % (25-47); Mean Corpuscular HGB Conc 34 g/dl (31-36); Mean Corpuscular Hemoglobin 32 pg (27-31); Mean Corpuscular Volume 95 fL (80-97); Mean Platelet Volume 8 um3 (7.4-10.4); Nucleated Red Blood Cells % 0.2; Platelet Count 255 10^3/ul (150-450); Red Blood Count 3.47 10^6/ul (4.0-5.4); Red Cell Distribution Width 19 % (10.5-15); White Blood Count 4.8 10^3/ul (3.5-10.8)
[2017-08-14 07:40] LABS: EGFR Non-African American 100.7 (>60)
[2017-08-14] MEDS: NS 0.9% 1000 ML* 1,000 ML IV SCH ×3 (08:30→16:42)
[2017-08-14] MEDS: buPROPion SR TAB.SR* 150 MG PO SCH ×2 (09:28→20:06)
[2017-08-14] MEDS: Cholecalciferol TAB* 1000 UNITS PO SCH (09:28)
[2017-08-14] MEDS: Cetirizine* 10 MG TAB PO SCH (09:28)
[2017-08-14] MEDS: Topiramate TAB(*) 100 MG PO SCH ×2 (09:28→20:06)
[2017-08-14] MEDS: Omeprazole CAP* 20 MG PO SCH (09:28)
[2017-08-14] MEDS: Potassium Chlor TAB* 20 MEQ TAB.ER PO SCH (09:29)
--- NOTE | 2017-08-14 11:43 | EEG ---
ELECTROENCEPHALOGRAPHY: DATE OF STUDY: - ROOM #420 DATE OF DICTATION: 08/13/17 PATIENT OF: Dr. Ortiz. CLINICAL PROBLEM: This is a 51-year-old woman with episodes of confusion and diarrhea with some coordination issues. MEDICATIONS: Include: 1. Aspirin. 2. Cholecalciferol. 3. Levothyroxine. 4. Lunesta. 5. Omeprazole. 6. Oxycodone. 7. Plaquenil. 8. Topamax. 9. Viactiv. 10. Wellbutrin. 11. Xyzal. 12. Zoloft. 13. Mirtazapine. 14. Zofran. 15. Coumadin. 16. Compazine. REPORT: With the patient awake, background cerebral activity consists of moderate amplitude, posterior dominant 9 to 10 Hz rhythm, which attenuates with eye opening, reappears with eye closure. Neither hyperventilation or photic stimulation activate the record. At times, there is muscle movement artifact. The patient never falls asleep. No epileptiform potentials, focal abnormalities or major asymmetries of background are noted. CLINICAL IMPRESSION: This awake EEG is within normal limits. [id number]/[facility] #: [id number] [facility]
[2017-08-14] MEDS: cefTRIAXone(*) 2 GM in NS 0.9% 100 ML* 100 ML IVPB SCH (16:25)
[2017-08-14] MEDS: Mirtazapine TAB* 15 MG PO SCH (16:58)
[2017-08-14] MEDS: Warfarin TAB(*) 4 MG PO SCH (16:58)
[2017-08-14] MEDS: Azithromycin IV(*) 500 MG in NS 0.9% 250 ML* 250 ML IVPB SCH (16:58)
[2017-08-14] MEDS: Sertraline* 100 MG TAB PO SCH (20:05)
[2017-08-14] MEDS: Zolpidem TAB* 10 MG PO PRN (20:10)
[2017-08-14] MEDS ORDERED: Potassium Chloride LIQUID* 20 MEQ PACKET PO SCH (21:00)
[2017-08-15] MEDS: Levothyroxine TAB* 125 MCG TAB PO SCH (05:51)
[2017-08-15] MEDS: NS 0.9% 1000 ML* 1,000 ML IV SCH ×2 (05:52→08:22)
[2017-08-15] MEDS: Levothyroxine TAB* 100 MCG TAB PO SCH (05:52)
[2017-08-15 06:46] LABS: INR 1.51 (0.77-1.02)
[2017-08-15 06:49] LABS: EGFR Non-African American 93.7 (>60)
[2017-08-15] MEDS: fentaNYL Patch Check Q Shift 1 NOTE SCH (07:00)
[2017-08-15 08:00] VITALS: BP 118/59
[2017-08-15] MEDS: Cholecalciferol TAB* 1000 UNITS PO SCH (08:15)
[2017-08-15] MEDS: Cetirizine* 10 MG TAB PO SCH (08:16)
[2017-08-15] MEDS: Omeprazole CAP* 20 MG PO SCH (08:16)
[2017-08-15] MEDS: Topiramate TAB(*) 100 MG PO SCH (08:16)
[2017-08-15] MEDS: buPROPion SR TAB.SR* 150 MG PO SCH (08:16)
[2017-08-15] MEDS ORDERED: Potassium Chlor TAB* 20 MEQ TAB.ER PO SCH (09:00)
--- NOTE | 2017-08-15 12:01 | PN ---
NEUROLOGICAL FOLLOWUP: DATE OF FOLLOWUP: 08/14/17 PATIENT OF: Dr. Nava. HISTORY: The patient feels back to normal in terms of no confusion or thinking issues. She has had no speech issues either. No numbness or weakness. Her oil heaterman partner is with her and feels that she is back to normal as well. MEDICATIONS: Her medications are unchanged and include: 1. Azithromycin. 2. Wellbutrin. 3. Ceftriaxone. 4. Zyrtec. 5. Lomotil. 6. Fentanyl p.r.n. 7. Synthroid. 8. Remeron. 9. Prilosec. 10. Zofran p.r.n. 11. Zoloft at bedtime. 12. Topamax 100 b.i.d. 13. Warfarin. PHYSICAL EXAMINATION: Temperature 98.6, pulse 88, respiratory rate 16, blood pressure 103/57. She is alert and oriented with normal speech and comprehension. Cranial nerves II through XII intact. Motor exam revealed normal tone and strength. Chest: Clear. Cardiovascular: Regular rate and rhythm. Abdomen: Soft, positive bowel sounds. DIAGNOSTIC STUDIES: Her EEG was normal. ASSESSMENT AND PLAN: I discussed with her that given the time course of her confusion, this most likely was related to her pneumonia and systemic infection causing some confusion. She apparently gets confused in the past when there has been a change in meds when she had her concussion. I do not feel any further testing or evaluation from a neurological point of view needs to be done at this point and I will be gland to see her back in the future as needed. [id number]/[facility] #: [id number] NICK
== END 2017-08-15 12:40 | disposition home or self-care (01) | DRG 194 ==
LOC: ED 13:20 → MED 16:45
PROVIDERS: ADMIT Internal Medicine Hematology & Oncology; ATTEND Internal Medicine Hematology & Oncology
DX: J18.8 Other pneumonia, unspecified organism (principal); C25.9 Malignant neoplasm of pancreas, unspecified; C79.89 Secondary malignant neoplasm of other specified sites; R64 Cachexia; M32.9 Systemic lupus erythematosus, unspecified; Z68.1 Body mass index [BMI] 19.9 or less, adult; R19.7 Diarrhea, unspecified; R41.0 Disorientation, unspecified; F32.9 Major depressive disorder, single episode, unspecified; E05.90 Thyrotoxicosis, unspecified without thyrotoxic crisis or storm; E03.9 Hypothyroidism, unspecified; M06.9 Rheumatoid arthritis, unspecified; Z87.891 Personal history of nicotine dependence; Z80.42 Family history of malignant neoplasm of prostate; Z92.3 Personal history of irradiation; Z79.01 Long term (current) use of anticoagulants; Z79.82 Long term (current) use of aspirin; Z79.891 Long term (current) use of opiate analgesic; Z79.899 Other long term (current) drug therapy; Z88.8 Allergy status to other drugs, medicaments and biological substances
CPT/HCPCS: 36415; 71046; 71275; 80048; 80053; 81003; 83605; 83735; 84443; 84484; 85025; 85610; 85652; 85730; 87040; 87502; 93005; 95816; 99223; 99232; 99233; 99238; 99284; A9270-GY; J0456; J0696; J1642; Q9967

== ENCOUNTER 2017-12-14 17:30 | Emergency (ER) | payer MEDICARE, MEDICAID ==
--- NOTE | 2017-12-14 18:22 | ED ---
Altered Mental Status - HPI Summary HPI Summary: Sent by oncology to the ED for further evaluation of recent increase in chronic symptoms of gait instability, speech problems, change in handwriting, memory loss, seeing things, hearing voices, mood swings, confusion, fatigue. AMS symptoms have been intermittent for months, pt states no new altered mental status symptoms other then intensity of symptoms, which have been worse in the past 2 weeks. Patient alert, oriented. Patient also complains of mild nonproductive cough 2 weeks. Patient has history of pancreatic cancer. Last chemotherapy treatment in May 2017. Patient is also due to start radiation next week for lesion in right hip. Denies current fever, sore throat , CP, SOB, abdominal pain, N/V/D, change in urine or BM, vision change, MARAVILLA, neck stiffness. Patient stopped Coumadin 3 days ago in preparation to switch to Eliquis this Sunday. Patient has positive history of blood clots. Denies new medication. Patient on fentanyl patch. - History Of Current Complaint Stated Complaint: CONFUSION/DIZZINESS Time Seen by Provider: 12/14/17 17:52 Hx Obtained From: Patient Onset/Duration: Gradually Severity Initially: Mild Severity Currently: Moderate Character: Confusion, Agitation Aggravating Factor(s): Unknown Alleviating Factor(s): Nothing Associated Signs And Symptoms: Positive: Negative - Allergies/Home Medications Allergies/Adverse Reactions: Allergies Allergy/AdvReac Type Severity Reaction Status Date / Time desvenlafaxine Allergy Mild Rash Verified 12/14/17 18:05 Home Medications: Home Medications Apixaban* [Eliquis*] 5 mg PO DAILY 12/14/17 [History Confirmed 12/14/17] Aspirin EC TAB* [Ecotrin EC Low Dose 81 MG*] 81 mg PO DAILY 12/14/17 [History Confirmed 12/14/17] Bupropion XL* [Wellbutrin XL *] 450 mg PO DAILY 12/14/17 [History Confirmed ] Calcium Carb/Vitamin D3/Vit K1 [Viactiv 500-500-40 mg-Unt-Mcg] 2 chw PO DAILY [History Confirmed 12/14/17] Hydroxychloroquine TAB* [Plaquenil TAB*] 200 mg PO BID 12/14/17 [History Confirmed 12/14/17] Levothyroxine TAB* [Synthroid TAB*] 125 mcg PO DAILY 12/14/17 [History Confirmed 12/14/17] Multivitamins/Minerals TAB* [Theragran/minerals TAB*] 1 tab PO DAILY 12/14/17 [ History Confirmed 12/14/17] Potassium Chlor TAB* [Klor Con ER TAB*] 20 meq PO DAILY WITH MEAL 12/14/17 [ History Confirmed 12/14/17] fentaNYL PATCHs 100 MCG/HR* [Duragesic Patch 100 Mcg/Hr *] 100 mcg TRANSDERM Q72H 12/14/17 [History Confirmed 12/14/17] PMH/Surg Hx/FS Hx/Imm Hx Endocrine/Hematology History: Reports: Hx Thyroid Disease Denies: Hx Diabetes Cardiovascular History: Reports: Hx Embolism Denies: Hx Hypertension, Hx Pacemaker/ICD Respiratory History: Reports: Hx Sleep Apnea - current CPAP user GI History: Reports: Hx Gastroesophageal Reflux Disease History: Denies: Hx Dialysis, Hx Renal Disease Musculoskeletal History: Reports: Hx Rheumatoid Arthritis Sensory History: Reports: Hx Contacts or Glasses, Hx Hearing Aid Opthamlomology History: Reports: Hx Contacts or Glasses Neurological History: Reports: Other Neuro Impairments/Disorders - concussions, fibromyalgia Psychiatric History: Reports: Hx Anxiety, Hx Depression Denies: Hx Panic Disorder - Cancer History Cancer Type, Location and Year: pancreatic cancer with chemo 2014. CURRENT CHEMO TX EVERY TWO WEEKS. - Surgical History Surgery Procedure, Year, and Place: cholecystectomy, C-sections X2, 2001 thyroid surgery. wipple procedure 07/03/14, PORT PLACEMENT, BILATERAL CARPAL TUNNEL Infectious Disease History: No Infectious Disease History: Denies: Traveled Outside the [place] in Last 30 Days - Family History Known Family History: Positive: Cardiac Disease, Hypertension - Social History Alcohol Use: None Substance Use Type: Reports: None Smoking Status (MU): Former Smoker Review of Systems Constitutional: Negative Eyes: Negative ENT: Negative Cardiovascular: Negative Positive: Cough Gastrointestinal: Negative Genitourinary: Negative Musculoskeletal: Negative Skin: Negative Psychological: Normal All Other Systems Reviewed And Are Negative: Yes Physical Exam - Summary Physical Exam Summary: Neuro exam unremarkable. Patient operative, alert, oriented responds appropriately. Mild delay in speech, but appropriate word selection and usage. Triage Information Reviewed: Yes Vital Signs On Initial Exam: Initial Vitals Temp Pulse Resp BP Pulse Ox 98.6 F 90 16 128/87 99 12/14/17 18:02 12/14/17 18:02 12/14/17 18:02 12/14/17 18:02 12/14/17 18:02 Vital Signs Reviewed: Yes Appearance: Positive: Well-Appearing Skin: Positive: Warm Head/Face: Positive: Normal Head/Face Inspection Eyes: Positive: Normal Neck: Positive: Supple Respiratory/Lung Sounds: Positive: Clear to Auscultation Cardiovascular: Positive: Normal Abdomen Description: Positive: Nontender Musculoskeletal: Positive: Normal Neurological: Positive: Normal Psychiatric: Positive: Normal AVPU Assessment: Alert - Jenkinjones Coma Scale Best Eye Response: 4 - Spontaneous Best Motor Response: 6 - Obeys Commands Best Verbal Response: 5 - Oriented Coma Scale Total: 15 Diagnostics - Vital Signs Vital Signs Temp Pulse Resp BP Pulse Ox 12/14/17 18:02 98.6 F 90 16 128/87 99 - Laboratory Result Diagrams: 12/14/17 18:42 12/14/17 18:42 Lab Statement: Any lab studies that have been ordered have been reviewed, and results considered in the medical decision making process. - Radiology cxr Xray Interpretation: No Acute Changes Radiology Interpretation Completed By: Radiologist - CT brain CT Interpretation: No Acute Changes CT Interpretation Completed By: Radiologist Re-Evaluation - Re-Evaluation 1 Re-Evaluation Time: 21:43 Comment: Patient remains alert, oriented, appropriate in behavior and response. Altered Mental Statu Course/Dx - Course Course Of Treatment: Sent by oncology to the ED for further evaluation of recent increase in chronic symptoms of gait instability, speech problems, change in handwriting, memory loss, seeing things, hearing voices, mood swings, confusion, fatigue. AMS symptoms have been intermittent for months, pt states no new altered mental status symptoms other then intensity of symptoms, which have been worse in the past 2 weeks. Patient alert, oriented. Patient also complains of mild nonproductive cough 2 weeks. Patient has history of pancreatic cancer. Last chemotherapy treatment in May 2017. Patient is also due to start radiation next week for lesion in right hip. Denies current fever, sore throat, CP, SOB, abdominal pain, N/V/D, change in urine or BM, vision change, MARAVILLA, neck stiffness. Patient stopped Coumadin 3 days ago in preparation to switch to Eliquis this Sunday. Patient has positive history of blood clots. Denies new medication. Patient on fentanyl patch. Neuro exam unremarkable. Patient operative, alert, oriented responds appropriately. Mild delay in speech, but appropriate word selection and usage. Discussed patient with Dr. Harper build automation engineer for oncology who stated that as long as noncontrast CT was clear of possible mass patient could be discharged. - Diagnoses Provider Diagnoses: Altered mental status Discharge - Sign-Out/Discharge Documenting (check all that apply): Discharge/Admit/Transfer - Discharge Plan Condition: Stable Disposition: HOME Referrals: Abhniav Lieberman MD [Primary Care Provider] - Additional Instructions: Follow-up with your oncologist. Return to the ED for any new or worsening symptoms - Billing Disposition and Condition Condition: STABLE Disposition: Home
--- NOTE | 2017-12-14 18:48 | RAD ---
INDICATION: Altered mental status and cough COMPARISON: Chest x-ray August 14, 2017 TECHNIQUE: PA and lateral views of the chest were obtained. FINDINGS: The heart and mediastinum are normal in size and contour. The lungs are grossly clear. There is no evidence of large pleural effusion. Visualized bones are normal for the patient's age. There is no radiographic evidence of free air beneath the diaphragm The patient's Mediport is partially visualized overlying the right hemiabdomen. IMPRESSION: No radiographic evidence of acute cardiopulmonary disease.
--- NOTE | 2017-12-14 18:51 | RAD ---
INDICATION: Worsening altered mental status COMPARISON: MRI of the brain dated August 10, 2017 TECHNIQUE: Contiguous axial sections of the brain were obtained from the skull base to the vertex without contrast. FINDINGS: The ventricles, cisterns and sulci are within normal limits. The arce-white matter differentiation is adequately maintained and there is no sulcal effacement. No significant focal abnormality or mass effect is present. There is no evidence for intracranial hemorrhage. No significant focal osseous abnormality is present. The visualized portion of the paranasal sinuses appear clear. The mastoid air cells are well aerated bilaterally. IMPRESSION: Normal CT of the brain.
[2017-12-14 19:00] LABS: ABS Basophils 0 10^3/ul (0-0.2); ABS Eosinophils 0.1 10^3/ul (0-0.6); ABS Lymphocytes 1.3 10^3/ul (1.0-4.8); ABS Monocytes 0.3 10^3/ul (0-0.8); ABS Neutrophils 1.4 10^3/ul (1.5-7.7); ABS Nucleated RBC 0 10^3/ul; Eosinophil % 4.1 % (0-6); Hematocrit 31 % (35-47); Hemoglobin 10.4 g/dl (12.0-16.0); Lymphocyte % 40.9 % (25-47); Mean Corpuscular HGB Conc 33 g/dl (31-36); Mean Corpuscular Hemoglobin 29 pg (27-31); Mean Corpuscular Volume 86 fL (80-97); Mean Platelet Volume 7.2 um3 (7.4-10.4); Nucleated Red Blood Cells % 0; Platelet Count 192 10^3/ul (150-450); Red Blood Count 3.66 10^6/ul (4.00-5.40); Red Cell Distribution Width 16 % (10.5-15); White Blood Count 3.2 10^3/ul (3.5-10.8)
[2017-12-14 19:03] LABS: INR 1.08 (0.77-1.02)
[2017-12-14 20:08] LABS: Urine Appearance Clear; Urine Blood Negative (Negative); Urine Color Yellow; Urine Ketones Negative (Negative); Urine Protein Negative (Negative); Urine Specific Gravity 1.012 (1.010-1.030); Urine Urobilinogen Negative (Negative)
[2017-12-14 22:13] VITALS: BP 108/63
== END 2017-12-14 22:13 | disposition home or self-care (01) ==
LOC: ED 17:30
DX: R41.82 Altered mental status, unspecified (principal); R05 Cough; G47.9 Sleep disorder, unspecified; E07.9 Disorder of thyroid, unspecified; M06.9 Rheumatoid arthritis, unspecified; Z86.718 Personal history of other venous thrombosis and embolism; Z85.07 Personal history of malignant neoplasm of pancreas; Z79.899 Other long term (current) drug therapy; Z87.891 Personal history of nicotine dependence; Z88.8 Allergy status to other drugs, medicaments and biological substances
CPT/HCPCS: 36415; 70450; 71046; 80053; 81003; 83605; 84439; 84443; 84481; 85025; 85610; 85730; 86140; 99282

== ENCOUNTER 2018-12-20 22:03 | Inpatient (IN) | payer MEDICARE, MEDICAID ==
[2018-12-20 23:49] LABS: Activated Partial Thrombo Time 28.3 seconds (26.0-38.0); INR 1.15 (0.82-1.09)
[2018-12-20] MEDS ORDERED: HYDROmorphone TAB* 4 MG PO ONE (23:49)
[2018-12-20] MEDS ORDERED: Methadone TAB* 10 MG PO ONE (23:50)
[2018-12-20] MEDS ORDERED: Albuterol 2.5 MG/3 ML NEB.SOL* (0.083%) INH PRN (23:57)
[2018-12-20] MEDS ORDERED: Al Hydrox/Mg Hydrox/Simet LIQ* 30 ML UDC PO PRN (23:57)
[2018-12-21] LABS: Hematocrit 21 % (35-47); Hemoglobin 6.6 g/dL (12.0-16.0); Mean Corpuscular HGB Conc 31 g/dL (31-36); Mean Corpuscular Hemoglobin 30 pg (27-31); Mean Corpuscular Volume 94 fL (80-97); Mean Platelet Volume 8.4 fL (7.4-10.4); Platelet Count 231 10^3/uL (150-450); Red Blood Count 2.24 10^6 /uL (3.70-4.87); Red Cell Distribution Width 24 % (10-15); White Blood Count 6.8 10^3/uL (3.5-10.8)
[2018-12-21 00:03] LABS: Albumin 1.9 g/dL (3.2-5.2); Albumin/Globulin Ratio 0.8 (1-3); BUN/Creatinine Ratio 32.4 (8-20); Calcium 6.8 mg/dL (8.6-10.3); EGFR African American 219.4 (>60); EGFR Non-African American 181.3 (>60); Globulin 2.5 g/dL (2-4); Potassium 4.2 mmol/L (3.5-5.0); Total Bilirubin 0.2 mg/dL (0.2-1.0); Total Protein 4.4 g/dL (6.4-8.9)
[2018-12-21] MEDS ORDERED: Metoclopramide TAB* 10 MG PO PRN (00:38)
[2018-12-21] MEDS ORDERED: Dexamethasone Oral Solution* 1 MG/ML 10 ML UDC (10 MG) PO PRN (00:38)
[2018-12-21] MEDS ORDERED: Ondansetron TAB* 4 MG PO PRN (00:38)
[2018-12-21 01:16] LABS: ABS Eosinophils 0.1 10^3/ul (0-0.6); ABS Lymphocytes 0.8 10^3/ul (1.0-4.8); ABS Monocytes 0.6 10^3/ul (0-0.8); ABS Neutrophils 5.4 10^3/ul (1.5-7.7); Eosinophil % 0.8 %; Lymphocyte % 11.3 %
--- NOTE | 2018-12-21 03:23 | HP ---
CC: Dr. Lieberman; Dr. Dan * HISTORY AND PHYSICAL: DATE OF ADMISSION: 12/21/18 TIME OF ADMISSION: 12:30 a.m. PRIMARY CARE PHYSICIAN: Dr. Lieberman. ONCOLOGIST: Dr. Vishal Dan. CHIEF COMPLAINT: Abnormal blood work. HISTORY OF PRESENT ILLNESS: This is a 53-year-old woman with history of pancreatic cancer, who is currently undergoing chemotherapy with Oncology at [facility] and is taking Mekinist chemotherapy. She has history of chemotherapy related anemia requiring transfusions in the past. About 1 week ago, she noticed dark tarry stools that were liquid and she also noticed that she felt more fatigued and short of breath than usual. She had routine blood work on Sunday as she gets it every 3 weeks and she got a call today with a hemoglobin of 6.6 and was instructed to go to the hospital. She went to [facility], however, they did not have irradiated blood or GI, so she was transferred here. 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 Her max heart rate in the ER equipment was 97 and her initial BP was 96/71. They gave her 2 L of normal saline and transferred her here. She has not yet received blood. She states she only takes Tylenol p.r.n.; however, she does have naproxen listed on her med list. She has had no associated abdominal pain, nausea, vomiting, chest pain, or weakness. PAST MEDICAL HISTORY: 1. Pancreatic cancer was diagnosed in April of 2014 and in June of 2014, she had a Whipple procedure at [facility]. She underwent chemotherapy and was told she is in remission. Then, in May 2016, she had recurrence. She underwent chemotherapy again with Dr. Dan and 2 months ago began seeing Dr. Ralph at [facility], who started Mekinist. 2. Lupus, on Plaquenil. 3. Hypothyroid. 4. Fibromyalgia. 5. Rheumatoid arthritis. She has been no recent steroids. 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 This was diagnosed in approximately 2014 or 2015 and she has been on anticoagulation since that time. MEDICATIONS: Home Medications: 1. Eliquis 2.5 mg daily. 2. Aspirin 81 mg daily. 3. Naproxen 220 mg b.i.d. p.r.n. pain. 4. Wellbutrin 450 mg daily. 5. Vitamin D 2000 units daily. 6. Decadron oral solution 4 mg daily. 7. Dilaudid 2 mg p.o. q.6 p.r.n. pain. 8. Plaquenil 200 mg t.i.d. 9. Levocetirizine 5 mg daily. 10. Synthroid 150 mcg daily. 11. Mag-ox 400 mg b.i.d. 12. Methadone 10 mg t.i.d. 13. Reglan 10 mg q.8 p.r.n. nausea. 14. Remeron 30 mg q.h.s. 15. Zofran 8 mg q.4 p.r.n. nausea. 16. MiraLAX 1 packet daily. 17. Lyrica 25 mg daily. 18. Zoloft 100 mg q.h.s. 19. Mekinist 2 mg daily. FAMILY HISTORY: Her father has Alzheimer's disease. SOCIAL HISTORY: She does not smoke, drink, or use illicit drugs. She lives in [place] with her . Her emergency contact is her friend, Halina Trinh. REVIEW OF SYSTEMS: As per the HPI. Remainder of the 14-point review of systems is negative. PHYSICAL EXAMINATION GENERAL: Alert, well-appearing female, who appears older than her stated age. She is nontoxic appearing and resting comfortably in bed. She has dystonia of the jaw. VITAL SIGNS: Temperature 98.7, heart rate 84, respiratory rate 18, pulse ox 97 % on room air, blood pressure 130/80. HEENT: Pupils are equal, round, and reactive to light. No jaundice or scleral icterus. Oral mucosa is moist. She has an acneiform rash over her face and neck. LUNGS: Her lungs are clear bilaterally. She has a port inferior to the right breast. CHEST: She is in a regular rate and rhythm with no murmurs. ABDOMEN: Her abdomen has an old laparotomy incision and striae. It is soft, nontender, and nondistended with no guarding or rebound. No CVA tenderness. EXTREMITIES: Her right lower extremity is larger than her left lower extremity , which she states it is chronic for her. Range of motion of her right lower extremity is limited by pain. She has no edema, rashes, or ulcers. NEUROLOGIC: She is oriented x3 and follows all commands. DIAGNOSTIC STUDIES/LABORATORY DATA: Another set of labs was obtained in our emergency department. Sodium 137, potassium 4.2, chloride 106, bicarbonate 26, creatinine 0.37, glucose 84, AST 135, ALT 59, alkaline phosphatase 655, INR 1.15. White blood cell is 6.8, hemoglobin 6.6, platelets 231,000. An EKG was performed, which shows low voltage in all extremities. Normal sinus rhythm. Normal axis. Normal intervals and no ST or T-wave changes. An FOBT done at [facility] was positive. ASSESSMENT AND PLAN: This is a 53-year-old female with history of metastatic pancreatic cancer, who is currently on Mekinist, presents to the emergency department with the incidental finding of acute on chronic anemia in the setting of melena for 1 week. 1. Acute blood loss anemia. She is hemodynamically stable and has good IV access including a port. One unit of packed red blood cells irradiated has been ordered by the emergency department and I agree with this. I have discussed the risks and benefits of blood transfusion with her and signed consent with her and she agrees to proceed. I am putting her on a Protonix drip as I suspect this is an upper GI bleed. She does not know of any liver disease or liver mets, however, her LFTs are quite elevated. This does not necessarily reflect infiltrative disease and may be a side effect of medications and I will leave that workup to Oncology, but I note that it is pertinent given this upper GI bleed and the concern for liver disease. I will hold off on octreotide for now and suspect a slower upper GI bleed. Dr. Alba Kennedy was consulted prior to Ms. Womack's arrival and I will touch base with her again in the morning. I will keep Josefina on clear liquids and continue to trend her hemoglobin. I will not reverse her anticoagulation given her hemodynamic stability at this time, but this can be considered should her bleed worsen. 2. Abnormal liver enzymes. She has had abnormal liver enzymes in the past, but I note that her alk phos is higher than usual. This is a known side effect of her current chemotherapy, however, I do wonder about progressive disease. I will defer abdominal imaging to Oncology. 3. Superior vena cava thrombus, on anticoagulation. As mentioned above, I will not reverse her anticoagulation given her hemodynamic stability and instead we will hold the Eliquis. The SVC thrombus was approximately 3 years ago and was associated with a port and she is only on 2.5 mg of Eliquis, so at this point, the risk of anticoagulation outweighs the benefit. 4. Chronic pain syndrome. Continue home doses of methadone and Dilaudid. 5. Lupus erythematosus. Continue Plaquenil. 6. Rheumatoid arthritis. She has not been on any recent steroids and does not appear to be in acute flare. 7. Hypothyroidism. Continue Synthroid. 8. DVT prophylaxis contraindicated in the setting of bleed. 9. Disposition: Admit to [address] [place] [address] with Oncology and GI consults. [id number]/CPS #: [id number] NICK
[2018-12-21] MEDS: Levothyroxine TAB* 150 MCG TAB PO SCH (06:07)
[2018-12-21 06:40] LABS: Albumin 1.9 g/dL (3.2-5.2); Anion Gap 8 mmol/L (2-11); CO2 Carbon Dioxide 21 mmol/L (22-32); Calcium 6.5 mg/dL (8.6-10.3); Chloride 107 mmol/L (101-111); Indirect Bilirubin 0.1 mg/dL (0.3-1.0); Sodium 136 mmol/L (135-145)
[2018-12-21 06:46] LABS: ALT 54 U/L (7-52); AST 133 U/L (13-39); Albumin/Globulin Ratio 0.8 (1-3); Alkaline Phosphatase 651 U/L (34-104); Blood Urea Nitrogen 13 mg/dL (6-24); EGFR African American 279.5 (>60); Globulin 2.3 g/dL (2-4); Glucose 79 mg/dL (70-100); Total Protein 4.2 g/dL (6.4-8.9)
[2018-12-21 06:53] LABS: Hematocrit 30 % (35-47); Hemoglobin 9.4 g/dL (12.0-16.0); Mean Corpuscular HGB Conc 32 g/dL (31-36); Mean Corpuscular Hemoglobin 29 pg (27-31); Mean Corpuscular Volume 92 fL (80-97); Mean Platelet Volume 8.4 fL (7.4-10.4); Platelet Count 245 10^3/uL (150-450); Red Blood Count 3.23 10^6 /uL (3.70-4.87); Red Cell Distribution Width 24 % (10-15); White Blood Count 7.3 10^3/uL (3.5-10.8)
[2018-12-21] MEDS: Pantoprazole* 80 mg IN NS 80 MG/250 ML BAG IV SCH ×3 (06:54→22:34)
[2018-12-21] MEDS: HYDROmorphone TAB* 2 MG PO PRN ×2 (06:59→20:12)
[2018-12-21 07:29] LABS: ABS Lymphocytes 1.1 10^3/ul (1.0-4.8); ABS Monocytes 0.7 10^3/ul (0-0.8); ABS Neutrophils 5.5 10^3/ul (1.5-7.7); Eosinophil % 0.6 %; Lymphocyte % 15.4 %; Nucleated Red Blood Cells % 0.2
[2018-12-21] MEDS ORDERED: Hydroxychloroquine TAB* 200 MG PO ONE (09:00)
[2018-12-21] MEDS: [UNRECOGNIZED DRUG - OTHER] PO SCH (09:18)
[2018-12-21] MEDS: Polyethylene Glycol 3350* 17 GM PACKET PO SCH (09:19)
[2018-12-21] MEDS: Cholecalciferol TAB* 1000 UNITS PO SCH (09:26)
[2018-12-21] MEDS: BuPROPion XL* 150 MG TAB.XL PO SCH (09:26)
[2018-12-21] MEDS: Methadone TAB* 10 MG PO SCH ×3 (09:26→20:12)
[2018-12-21] MEDS: Cetirizine* 10 MG TAB PO SCH (09:26)
[2018-12-21] MEDS: Magnesium Oxide TAB* 400 MG PO SCH ×2 (09:26→20:13)
[2018-12-21] MEDS: Multivitamins/Minerals TAB PO SCH (09:26)
[2018-12-21] MEDS: Pregabalin CAP(*) 25 MG PO SCH (09:27)
--- NOTE | 2018-12-21 10:33 | PN ---
Progress Note - Progress Note Date of Service: 12/21/18 SOAP: Subjective: [Josefina was transferred from [facility] yesterday with concerns regarding a possible GI bleed. She reports melena starting ~10d ago. She is under the care of Dr Ralph at [facility] and reports that she has been receiving ~2U of PRBCs every 3 weeks. She was called by Dr Ralph's office yesterday to notify her that her Hgb earlier in the week was ~6.5 g/dl and recommended that she get a transfusion. She presented to the [place] ER for blood and reported melena at which point she was transferred here for GI evaluation. She received 1U PRBCs overnight and reports she is feeling much better. Denies abd pain. Interestingly her Hgb ana from 6.6 g/dl to 9.4 g/dl post procedure.] Objective: [ Vital Signs: Temp Pulse Resp BP Pulse Ox 97.9 F 78 14 117/74 98 12/21/18 07:26 12/21/18 07:26 12/21/18 09:27 12/21/18 07:26 12/21/18 07:26 Al Hydrox/Mg Hydrox/Simethicone (Maalox Plus*) 30 ml PO Q6H PRN PRN Reason: INDIGESTION Albuterol (Ventolin 2.5 Mg/3 Ml Neb.Kylee*) 2.5 mg INH RT.[id number] AWAKE PRN PRN Reason: sob/wheezing Bupropion HCl (Wellbutrin Xl *) 450 mg PO DAILY ADRIA Last Admin: 12/21/18 09:26 Dose: 450 mg Cetirizine HCl (Zyrtec*) 10 mg PO DAILY [facility]RI[facility] Last Admin: 12/21/18 09:26 Dose: 10 mg Cholecalciferol (Vitamin D Tab*) 2,000 units PO DAILY ADRIA Last Admin: 12/21/18 09:26 Dose: 2,000 units Dexamethasone (Decadron Oral Solution*) 4 mg PO DAILY PRN PRN Reason: NAUSEA Hydromorphone HCl (Dilaudid Tab*) 2 mg PO Q6H PRN PRN Reason: PAIN Last Admin: 12/21/18 06:59 Dose: 2 mg Hydroxychloroquine Sulfate (Plaquenil Tab*) 200 mg PO TID [facility] Pantoprazole Sodium (Protonix Iv Bag*) 80 mg in 250 mls @ 25 mls/hr IV Q10H [facility] Last Admin: 12/21/18 06:54 Dose: 25 mls/hr Levothyroxine Sodium (Synthroid Tab*) 150 mcg PO DAILY@0600 [facility] Last Admin: 12/21/18 06:07 Dose: 150 mcg Magnesium Oxide (Magox 400 Tab*) 400 mg PO BID [facility] Last Admin: 12/21/18 09:26 Dose: 400 mg Methadone HCl (Dolophine Tab*) 10 mg PO TID [facility] Last Admin: 12/21/18 09:26 Dose: 10 mg Metoclopramide HCl (Reglan Tab*) 10 mg PO Q8H PRN PRN Reason: NAUSEA Mirtazapine (Remeron Tab*) 30 mg PO QPM [facility] Multivitamins/Minerals (Theragran/Minerals Tab*) 1 tab PO DAILY [facility] Last Admin: 12/21/18 09:26 Dose: 1 tab Nft* (Trametinib Dimethyl Sulfoxide [ Mekinist] 2 Mg) 2 mg PO DAILY@0730 [facility] Last Admin: 12/21/18 09:18 Dose: Not Given Ondansetron HCl (Zofran Tab*) 8 mg PO Q4HR PRN PRN Reason: NAUSEA/VOMITING Polyethylene Glycol/Electrolytes (Miralax*) 17 gm PO DAILY [facility] Last Admin: 12/21/18 09:19 Dose: Not Given Pregabalin (Lyrica Cap(*)) 25 mg PO DAILY [facility] Last Admin: 12/21/18 09:27 Dose: 25 mg Sertraline HCl (Zoloft*) 100 mg PO BEDTIME [facility] Laboratory Results - last 24 hr 12/20/18 12/20/18 12/20/18 23:33 23:33 23:33 WBC 6.8 RBC 2.24 L Hgb 6.6 L Hct 21 L MCV 94 MCH 30 MCHC 31 RDW 24 H Plt Count 231 MPV 8.4 Neut % (Auto) 79.0 Lymph % (Auto) 11.3 Armstrong % (Auto) 8.2 Eos % (Auto) 0.8 Baso % (Auto) 0.7 Absolute Neuts (auto) 5.4 Absolute Lymphs (auto) 0.8 L Absolute Monos (auto) 0.6 Absolute Eos (auto) 0.1 Absolute Basos (auto) 0.0 Absolute Nucleated RBC 0.0 Nucleated RBC % 0.0 INR (Anticoag Therapy) 1.15 H APTT 28.3 Sodium 137 Potassium 4.2 Chloride 106 Carbon Dioxide 26 Anion Gap 5 BUN 12 Creatinine 0.37 L Est GFR ( Amer) 219.4 Est GFR (Non-Af Amer) 181.3 BUN/Creatinine Ratio 32.4 H Glucose 84 Calcium 6.8 L Total Bilirubin 0.20 Direct Bilirubin Indirect Bilirubin AST 135 H ALT 59 H Alkaline Phosphatase 655 H Total Protein 4.4 L Albumin 1.9 L Globulin 2.5 Albumin/Globulin Ratio 0.8 L Blood Type Antibody Screen Crossmatch 12/20/18 12/21/18 12/21/18 23:33 05:44 06:45 WBC 7.3 RBC 3.23 L Hgb 9.4 L Hct 30 L MCV 92 MCH 29 MCHC 32 RDW 24 H Plt Count 245 MPV 8.4 Neut % (Auto) 74.5 Lymph % (Auto) 15.4 Armstrong % (Auto) 9.0 Eos % (Auto) 0.6 Baso % (Auto) 0.5 Absolute Neuts (auto) 5.5 Absolute Lymphs (auto) 1.1 Absolute Monos (auto) 0.7 Absolute Eos (auto) 0.0 Absolute Basos (auto) 0.0 Absolute Nucleated RBC 0.0 Nucleated RBC % 0.2 INR (Anticoag Therapy) APTT Sodium 136 Potassium 4.0 Chloride 107 Carbon Dioxide 21 L Anion Gap 8 BUN 13 Creatinine < 0.30 L Est GFR ( Amer) 279.5 Est GFR (Non-Af Amer) 231.0 BUN/Creatinine Ratio 43.0 H Glucose 79 Calcium 6.5 L Total Bilirubin 0.20 Direct Bilirubin 0.10 Indirect Bilirubin 0.1 L AST 133 H ALT 54 H Alkaline Phosphatase 651 H Total Protein 4.2 L Albumin 1.9 L Globulin 2.3 Albumin/Globulin Ratio 0.8 L Blood Type O Positive Antibody Screen Negative Crossmatch See Detail Exam: Gen: chronically ill appearing 53 yo female in NAD HEENT: MMM CV: RRR, no m/r/g Resp: CTA, no w/c/r Abd: soft, nonTTP Ext: trace to 1+ edema Skin: pale] Assessment: [This is a 53 yo female with metastatic pancreatic CA who is now under the care of Dr Ralph at [facility] and receiving trametinib as well as high dose plaquenil. She reports a 10d history of melena and presented with a Hgb 6.6 g/ dl. Now s/p 1U PRBCs and Hgb ana nearly 3g. Symptoms are consistent with a GIB, but response to PRBCs is inappropriately robust and may represent a lab/ sampling error. ] Plan: [1. GIB - upper endoscopy to eval for source of bleeding - repeat H&H - cont protonix drip for now - hold eliquis 2. Metastatic pancreatic cancer - receiving trametinib (MEK inhibitor) from Dr Ralph at [facility] - she appears to be doing well clinically and reports that she has restaging scans planned for next week - unsure of what the indication for her high dose plaquenil is, but will continue at this time 3. h/o SVC thrombus - anticoagulated with Eliquis which has been held since admission - plan for resuming anticoagulation will depend on EGD results Dispo: pending EGD for later today, dc plan will depend on results]
[2018-12-21 11:21] LABS: Hematocrit 24 % (35-47); Hemoglobin 7.9 g/dL (12.0-16.0)
[2018-12-21] MEDS ORDERED: fentaNYL* 50 MCG/ML 2 ML VIAL (100 MCG VIAL) ONE (11:38)
[2018-12-21] MEDS ORDERED: Midazolam* 1 MG/ML 10 ML VIAL (10 MG) ONE (11:38)
--- NOTE | 2018-12-21 14:31 | CONS ---
CC: DIGNA Razo GASTROENTEROLOGY CONSULT NOTE: DATE OF CONSULT: 12/21/18 CONSULTING PROVIDER: DIGNA Razo REASON FOR CONSULT: Melena and anemia. HISTORY OF PRESENT ILLNESS: Ms. Womack is a 53-year-old woman with a history of pancreatic cancer status-post Whipple surgery and currently on chemotherapy, who is admitted with anemia and melena. To review, Ms. Womack was diagnosed with pancreatic cancer in late 2013. She had a Whipple procedure in June 2014. She underwent chemotherapy with unfortunate recurrence in late 2015. She received additional chemotherapy locally and more recently has been following in [facility] at [facility]. The patient gets blood work performed weekly and has transfusions every few weeks while on chemotherapy. She had blood work drawn on Sunday and was called on Sunday with the results. She was told her hemoglobin was between 6 and 7. It was recommended that she be seen for a transfusion. She presented to [place] ED last night where hemoglobin was noted to be 6.6. Blood pressure was 96/71. She was given 2 L of fluids and transferred to [facility]. She was given 1 unit of irradiated blood with followup hemoglobin of 9.4. Repeat hemoglobin 7.9. GI consulted. On interview, Ms. Womack says that she noticed liquid black stools beginning a week ago and ending on Sunday. She did not see any red blood. She has normal bowel movements typically, so this was different than her baseline. She has also noticed some fatigue and shortness of breath recently. She uses naproxen infrequently. She is on aspirin 81 mg daily as well as Eliquis 2.5 mg daily for history of an SVC thrombus. Last dose of Eliquis was Sunday. The patient denies any other NSAID use. No steroid use. No history of GI bleeding. PAST MEDICAL HISTORY: 1. Pancreatic cancer, status post Whipple. Currently on chemotherapy through [facility] in [facility]. 2. Lupus, on Plaquenil. 3. Hypothyroidism. 4. Fibromyalgia. 5. Rheumatoid arthritis. 6. SVC thrombus in 2014 or 2015. Maintained on anticoagulation. MEDICATIONS: Include: 1. Eliquis 2.5 mg daily. 2. Aspirin 81 mg daily. 3. Naproxen 220 mg b.i.d. p.r.n. 4. Wellbutrin 450 daily. 5. Vitamin D 2000 units daily. 6. Decadron liquid daily p.r.n. (listed on AUG but patient denies using this med). 7. Hydromorphone 2 mg q.6 p.r.n. 8. Hydroxychloroquine 200 mg t.i.d. 9. Xyzal 5 mg daily. 10. Levothyroxine 125 mcg daily. 11. Magnesium oxide 800 mg twice daily. 12. Methadone 10 mg t.i.d. 13. Metoclopramide 10 mg q.8. (listed on AUG but patient denies using this med) 14. Mirtazapine 30 mg q.p.m. 15. Multivitamin daily. 16. Naproxen p.r.n. 17. Zofran p.r.n. 18. MiraLAX daily p.r.n. 19. Lyrica 25 mg b.i.d. 20. Sertraline 100 mg at bedtime. 21. Chemotherapy Mekinist daily. ALLERGIES: To DESVENLAFAXINE. FAMILY HISTORY: No known GI or liver disease. SOCIAL HISTORY: Lives in [place] with her . Nonsmoker and no alcohol use. No drug use. REVIEW OF SYSTEMS: A complete review of systems is notable for shortness of breath, fatigue, melena, right hip pain. Remainder of the review of systems is unremarkable. PHYSICAL EXAM: Vital Signs: Temp 97.9, heart rate 78, blood pressure 117/74, 98% on room air. General: Pleasant, chronically ill-appearing woman, in no acute distress. HEENT: Mucous membranes moist. Cardiovascular: Regular rate and rhythm. No murmurs, rubs, or gallops. Pulm: Breathing comfortably. Lungs clear to auscultation. Abdomen: Soft, nontender, nondistended. Extremities: Edema in the right lower extremity and right upper extremity MSK: The patient is very tender to palpation near the right hip. DIAGNOSTIC STUDIES/LAB DATA: Labs reviewed in HPI. Hemoglobin 6.6 on admission up to 9.4 after 1 unit and 7.9 several hours later, platelet count normal, white count normal. INR 1.15 on admission. Creatinine less than 0.3. AST 133, ALT 54, alk phos 651, bilirubin 0.2. Albumin 1.9. Imaging: No imaging this admission. IMPRESSION AND PLAN: Ms. Womack is a 53-year-old woman with an unfortunate history of pancreatic cancer, status post Whipple, currently on salvage chemotherapy as well as history of superior vena cava thrombus, on Eliquis, who is admitted with acute on chronic anemia and melena. Ms. Womack is hemodynamically stable. Melena has not occurred since Sunday. Blood counts initially after transfusion were much higher than expected, but did seem to decrease to a more expected level on recheck. Case suggestive of upper gastrointestinal bleed, which appears clinically to have slowed or stopped. Please continue to hold anticoagulation for now. The patient is n.p.o. I will plan for EGD today. Course of action following the EGD will depend on findings. Thank you very much for this consult. [id number]/[facility] #: [id number] NICK
--- NOTE | 2018-12-21 14:48 | PRO ---
CC: DIGNA Razo PROCEDURE REPORT: DATE OF PROCEDURE: 12/21/18 PROCEDURE: EGD. INPATIENT PROVIDER: DIGNA Razo. INDICATION: The patient is a 53-year-old woman with a history of metastatic pancreatic cancer receiving chemotherapy currently at [facility] in [facility]. She has a history of Whipple for the pancreatic cancer in 2015. She is on Eliquis for a history of SVC thrombus 3 to 4 years ago. She is also on aspirin daily. Uses naproxen infrequently. The patient gets weekly blood work drawn to follow her counts while on chemotherapy. She was noted to have hemoglobin between 6 and 7 from lab work drawn on Sunday. She was contacted regarding this lab on Sunday and was instructed to present to ED for transfusion. Presented to [facility] with a hemoglobin of 6.6. She reports a week of liquid melena, which stopped on Sunday. Transferred to [facility] for further management. The patient received 1 unit of blood. On initial followup, the hemoglobin was 9.4. Repeat blood count later this morning was 7.9 MEDICATIONS GIVEN: 1. Midazolam 5 mg IV. 2. Fentanyl 25 mcg IV. DESCRIPTION OF PROCEDURE: Full disclosure of risks was reviewed with the patient as detailed on the consent form. The patient was placed in the left lateral decubitus position and monitored with continuous pulse oximetry, capnography, interval blood pressure monitoring, and direct observation. A bite -block was placed between the patient's teeth. An adult gastroscope was then inserted into the patient's mouth and advanced down the esophagus, into the stomach, and into the distal duodenum. Findings and interventions are described below. FINDINGS: Esophagus was a tubular structure without obvious rings or strictures. Scope was advanced into the gastric pouch. In the gastric pouch, there was mild to moderate amount of food residue which was washed and suctioned with modest success. There was no fresh or red blood seen within the stomach. Retroflexion in the stomach was unremarkable. Anastomotic ring was then examined. Mucosa along the anastomosis was friable, but there was no ulceration or bleeding from anastomosis. Scope was then advanced into the jejunal segment. In the portion of jejunum immediately distal to the anastomosis , there was a moderate amount of food residue mixed with red blood. Extensive washing and suctioning performed. Simethicone flushes were used to help remove bubbles. There were two long linear areas (2-3 cm each) of clotted blood seen on adjacent folds. These areas were also covered in a significant amount of food residue. Gentle irrigation with water pedal as well as flushing with simethicone were used to help remove the food residue as well as to attempt to dislodge the clotted material. A biopsy forceps was also used to remove a few pieces of food residue from the clotted areas. Despite these efforts, the clots in both regions appeared well adhered to the mucosa. No active bleeding or oozing from these areas. Scope was able to advance through the presumed Jamaal limb x20 cm. No fresh or old blood Mucosa was normal. There was a second opening to a small intestine, which was also normal x15 cm. Suspect this was the blind limb, although it was quite long. Scope was then withdrawn from the patient. The patient tolerated the procedure well and was recovered in the GI recovery area. IMPRESSION: 1. Complete upper endoscopy to jejunum. Jamaal-en-y gastric bypass anatomy. 2. Two long linear areas of adherent clots seen on adjacent folds in the proximal portion of jejunum immediately distal to the anastomotic ring. Unclear if these represent ulcers or other bleeding lesions. Gentle lavage with water as well as simethicone flushes did not dislodge the clotted material. No active oozing seen from these areas. Decision made to not pursue more aggressive means of dislodging the clot given patient stability, recent anticoagulation use, and lack of available specialty surgery or IR services. FOLLOW-UP: 1. Based on peptic ulcer disease literature, the risk of re-bleeding with adherent clot is estimated to be as high as 20% to 30% (and likely higher on anticoagulation). Would recommend keeping the patient in the hospital on IV PPI drip. 2. Continue to monitor CBC every 6 to 8 hours. 3. Can continue clear diet for now. 4. I discussed the case with Abundio Mckeon in detail. The patient's SVC thrombus was several years ago. Heme is okay with holding anticoagulation for now. If the patient has no recurrent bleeding in next 48-72 hours, then I would consider repeat EGD in 1-2 weeks to reassess the areas in order to help determine risk of anticoagulation going forward. 5. Avoid NSAIDs. GI will continue to follow. Thank you very much for the consult. [id number]/[facility] #: [id number] MTDD
[2018-12-21] MEDS: Hydroxychloroquine TAB* 200 MG PO SCH ×2 (15:21→20:11)
[2018-12-21 20:48] LABS: Hematocrit 23 % (35-47); Hemoglobin 7.6 g/dL (12.0-16.0)
[2018-12-21] MEDS ORDERED: Sertraline* 100 MG TAB PO SCH (21:00)
[2018-12-21] MEDS ORDERED: Mirtazapine TAB* 15 MG PO SCH (21:00)
[2018-12-22 02:22] LABS: Hematocrit 24 % (35-47); Hemoglobin 7.8 g/dL (12.0-16.0)
[2018-12-22] MEDS: Levothyroxine TAB* 150 MCG TAB PO SCH (06:12)
--- NOTE | 2018-12-22 07:43 | ED ---
Complex/Multi-Sys Presentation - History Of Current Complaint Chief Complaint: EDGIBleed Time Seen by Provider: 12/20/18 22:55 - Allergies/Home Medications Allergies/Adverse Reactions: Allergies Allergy/AdvReac Type Severity Reaction Status Date / Time desvenlafaxine Allergy Mild Rash Verified 07/22/18 10:33 Home Medications: Home Medications Dexamethasone Oral Solution* [Decadron Oral Solution*] 4 mg PO DAILY PRN [History Confirmed 12/21/18] HYDROmorphone TAB* [Dilaudid TAB*] 2 mg PO Q6H PRN 12/20/18 [History Confirmed 12/21/18] Hydroxychloroquine TAB* [Plaquenil TAB*] 200 mg PO TID 12/20/18 [History Confirmed 12/21/18] Methadone TAB* [Dolophine TAB*] 10 mg PO BID 12/20/18 [History Confirmed ] Metoclopramide TAB* [Reglan TAB*] 10 mg PO Q8H PRN 12/20/18 [History Confirmed 12/21/18] Polyethylene Glycol 3350* [Miralax*] 1 packet PO DAILY 12/20/18 [History Confirmed 12/21/18] Pregabalin CAP(*) [Lyrica CAP(*)] 25 mg PO BID 12/20/18 [History Confirmed 12/21] PMH/Surg Hx/FS Hx/Imm Hx Endocrine/Hematology History: Reports: Hx Thyroid Disease - hypothyroid, Hx Anemia Denies: Hx Diabetes Cardiovascular History: Reports: Hx Embolism Denies: Hx Hypertension, Hx Pacemaker/ICD Respiratory History: Reports: Hx Sleep Apnea - current CPAP user GI History: Reports: Hx Gastroesophageal Reflux Disease, Hx Gastrointestinal Bleed History: Denies: Hx Dialysis, Hx Renal Disease Musculoskeletal History: Reports: Hx Arthritis - RA, Hx Rheumatoid Arthritis, Hx Fibromyalgia Sensory History: Reports: Hx Contacts or Glasses, Hx Hearing Aid Denies: Other Sensory Impairments Opthamlomology History: Reports: Hx Contacts or Glasses Denies: Other Sensory Impairments Neurological History: Reports: Other Neuro Impairments/Disorders - concussions, fibromyalgia Psychiatric History: Reports: Hx Anxiety, Hx Depression Denies: Hx Panic Disorder - Cancer History Cancer Type, Location and Year: pancreatic cancer with chemo 2014. CURRENT CHEMO TX EVERY TWO WEEKS. - Surgical History Surgery Procedure, Year, and Place: no gallbladder Hx Anesthesia Reactions: No - Immunization History Immunizations Up to Date: Yes Infectious Disease History: No Infectious Disease History: Denies: Traveled Outside the [place] in Last 30 Days - Family History Known Family History: Positive: Cardiac Disease, Hypertension - Social History Alcohol Use: None Substance Use Type: Reports: None Smoking Status (MU): Former Smoker Physical Exam Vital Signs On Initial Exam: Initial Vitals Temp Pulse Resp BP Pulse Ox 98.7 F 86 18 123/69 97 12/20/18 22:13 12/20/18 22:13 12/20/18 22:13 12/20/18 22:13 12/20/18 22:13 Diagnostics - Vital Signs Vital Signs Temp Pulse Resp BP Pulse Ox 12/21/18 00:10 130/80 12/20/18 23:58 130/80 12/20/18 23:28 149/79 12/20/18 23:00 84 94 12/20/18 22:59 82 95 12/20/18 22:58 85 138/80 94 12/20/18 22:13 98.7 F 86 18 123/69 97 - Laboratory Lab Results: Lab Results 12/20/18 12/20/18 12/20/18 Range/Units 23:33 23:33 23:33 WBC 6.8 (3.5-10.8) 10^3/uL RBC 2.24 L (3.70-4.87) 10^6 /uL Hgb 6.6 L (12.0-16.0) g/dL Hct 21 L (35-47) % MCV 94 (80-97) fL MCH 30 (27-31) pg MCHC 31 (31-36) g/dL RDW 24 H (10-15) % Plt Count 231 (150-450) 10^3/uL MPV 8.4 (7.4-10.4) fL Neut % (Auto) 79.0 % Lymph % (Auto) 11.3 % [place] % (Auto) 8.2 % Eos % (Auto) 0.8 % Baso % (Auto) 0.7 % Absolute Neuts (auto) 5.4 (1.5-7.7) 10^3/ul Absolute Lymphs (auto) 0.8 L (1.0-4.8) 10^3/ul Absolute Monos (auto) 0.6 (0-0.8) 10^3/ul Absolute Eos (auto) 0.1 (0-0.6) 10^3/ul Absolute Basos (auto) 0.0 (0-0.2) 10^3/ul Absolute Nucleated RBC 0.0 10^3/ul Nucleated RBC % 0.0 Hem Pathologist Commnt INR (Anticoag Therapy) 1.15 H (0.82-1.09) APTT 28.3 (26.0-38.0) seconds Sodium 137 (135-145) mmol/L Potassium 4.2 (3.5-5.0) mmol/L Chloride 106 (101-111) mmol/L Carbon Dioxide 26 (22-32) mmol/L Anion Gap 5 (2-11) mmol/L BUN 12 (6-24) mg/dL Creatinine 0.37 L (0.51-0.95) mg/dL Est GFR ( Amer) 219.4 (>60) Est GFR (Non-Af Amer) 181.3 (>60) BUN/Creatinine Ratio 32.4 H (8-20) Glucose 84 (70-100) mg/dL Calcium 6.8 L (8.6-10.3) mg/dL Total Bilirubin 0.20 (0.2-1.0) mg/dL AST 135 H (13-39) U/L ALT 59 H (7-52) U/L Alkaline Phosphatase 655 H (34-104) U/L Total Protein 4.4 L (6.4-8.9) g/dL Albumin 1.9 L (3.2-5.2) g/dL Globulin 2.5 (2-4) g/dL Albumin/Globulin Ratio 0.8 L (1-3) Blood Type Antibody Screen Crossmatch 12/20/18 Range/Units 23:33 WBC (3.5-10.8) 10^3/uL RBC (3.70-4.87) 10^6 /uL Hgb (12.0-16.0) g/dL Hct (35-47) % MCV (80-97) fL MCH (27-31) pg MCHC (31-36) g/dL RDW (10-15) % Plt Count (150-450) 10^3/uL MPV (7.4-10.4) fL Neut % (Auto) % Lymph % (Auto) % [place] % (Auto) % Eos % (Auto) % Baso % (Auto) % Absolute Neuts (auto) (1.5-7.7) 10^3/ul Absolute Lymphs (auto) (1.0-4.8) 10^3/ul Absolute Monos (auto) (0-0.8) 10^3/ul Absolute Eos (auto) (0-0.6) 10^3/ul Absolute Basos (auto) (0-0.2) 10^3/ul Absolute Nucleated RBC 10^3/ul Nucleated RBC % Hem Pathologist Commnt INR (Anticoag Therapy) (0.82-1.09) APTT (26.0-38.0) seconds Sodium (135-145) mmol/L Potassium (3.5-5.0) mmol/L Chloride (101-111) mmol/L Carbon Dioxide (22-32) mmol/L Anion Gap (2-11) mmol/L BUN (6-24) mg/dL Creatinine (0.51-0.95) mg/dL Est GFR ( Amer) (>60) Est GFR (Non-Af Amer) (>60) BUN/Creatinine Ratio (8-20) Glucose (70-100) mg/dL Calcium (8.6-10.3) mg/dL Total Bilirubin (0.2-1.0) mg/dL AST (13-39) U/L ALT (7-52) U/L Alkaline Phosphatase (34-104) U/L Total Protein (6.4-8.9) g/dL Albumin (3.2-5.2) g/dL Globulin (2-4) g/dL Albumin/Globulin Ratio (1-3) Blood Type O Positive Antibody Screen Negative Crossmatch See Detail Result Diagrams: 12/22/18 02:14 12/21/18 05:44 Lab Statement: Any lab studies that have been ordered have been reviewed, and results considered in the medical decision making process. Discharge - Discharge Plan Condition: Stable Disposition: ADMITTED TO [facility] Billing Disposition and Condition Condition: STABLE Disposition: Admitted to [facility]
[2018-12-22] MEDS: [UNRECOGNIZED DRUG - OTHER] PO SCH (08:30)
[2018-12-22] MEDS: Pantoprazole* 80 mg IN NS 80 MG/250 ML BAG IV SCH (08:50)
[2018-12-22] MEDS: Cholecalciferol TAB* 1000 UNITS PO SCH (08:51)
[2018-12-22] MEDS: Multivitamins/Minerals TAB PO SCH (08:52)
[2018-12-22] MEDS: BuPROPion XL* 150 MG TAB.XL PO SCH (08:52)
[2018-12-22] MEDS: Hydroxychloroquine TAB* 200 MG PO SCH ×2 (08:52→14:49)
[2018-12-22] MEDS: Cetirizine* 10 MG TAB PO SCH (08:52)
[2018-12-22] MEDS: Methadone TAB* 10 MG PO SCH (08:52)
[2018-12-22] MEDS: Pregabalin CAP(*) 25 MG PO SCH (08:52)
[2018-12-22] MEDS: Magnesium Oxide TAB* 400 MG PO SCH (08:52)
[2018-12-22] MEDS: Polyethylene Glycol 3350* 17 GM PACKET PO SCH (08:54)
[2018-12-22] MEDS ORDERED: Alteplase (CATHFLO)* 2 MG/2 ML VIAL IV ONE (13:43)
--- NOTE | 2018-12-22 14:45 | DS ---
CC: Dr. Ralph; Dr. Lieberman * DISCHARGE SUMMARY: DATE OF ADMISSION: 12/20/18 DATE OF DISCHARGE: 12/22/18 PRIMARY CARE PROVIDER: Dr. Lieberman. PRIMARY LOCAL ONCOLOGIST: Dr. Vishal Dan.* (DICTATED BY DIGNA LAMAS) PRIMARY ONCOLOGIST: Dr. Ralph with [facility] in [facility]. CONSULTING DOG DAYCARE PROVIDER: Dr. Glo Laws. DISCHARGING PROVIDER: DIGNA Lamas. PRIMARY DISCHARGE DIAGNOSES: 1. Gastrointestinal bleed. 2. Metastatic pancreatic cancer. DISCHARGE MEDICATIONS: 1. Wellbutrin 450 mg p.o. daily. 2. Vitamin D 2000 units p.o. daily. 3. Dexamethasone oral solution 4 mg p.o. daily as needed for nausea. 4. Hydromorphone 2 mg p.o. q.6 hours as needed for pain. 5. Plaquenil 200 mg p.o. 3 times daily. 6. Levocetirizine 5 mg p.o. daily. 7. Levothyroxine 150 mcg p.o. daily. 8. Magnesium oxide 800 mg p.o. twice daily. 9. Methadone 10 mg p.o. twice daily. 10. Reglan 10 mg p.o. q.8 hours as needed for nausea and vomiting. 11. Remeron 30 mg p.o. at bedtime. 12. Multivitamin 1 tablet p.o. daily. 13. Zofran 8 mg p.o. q.4 hours as needed for nausea and vomiting. 14. MiraLAX 1 packet p.o. daily as needed for constipation. 15. Lyrica 25 mg p.o. twice daily. 16. Zoloft 100 mg p.o. at bedtime. 17. Protonix 40 mg p.o. twice daily. DISCONTINUED/HELD MEDICATIONS: 1. Mekinist. 2. Eliquis. 3. Aspirin. 4. Naproxen. HOSPITAL IMAGING: None. HOSPITAL PROCEDURES: EGD. The patient had 2 long linear areas of adjacent clot seen on adjacent folds in the proximal portion of the jejunum immediately distal to the anastomotic ring, unclear if these represent ulcers or other bleeding lesions. Gentle lavage with water as well as dimethicone flushes did not dislodge the clotted material. No active oozing appreciated. HOSPITAL COURSE: This is a 53-year-old female with metastatic pancreatic cancer , currently under the care of Dr. Ralph at [facility], treated with Mekinist after progressing through multiple lines of therapy locally, who presented with anemia and complaints of melena. The patient states that she generally has blood work done on a weekly basis and has been requiring approximately 2 units of blood every 3 weeks for quite some time now. She had blood work done on Sunday of this week, which was 12/16/18 and she was contacted by Dr. Ralph's office on Sunday stating that her hemoglobin was in the mid 6s and they recommended a blood transfusion. She subsequently presented to the [facility] requesting a blood transfusion, but also reported that she had been having melena for approximately 10 days prior. The patient was subsequently transferred to [facility] and transfused 1 unit of packed red blood cells. Initial hemoglobin upon reaching [facility] was 6.6 g/dL in line with what was told to her by [facility] earlier in the week. After 1 unit of packed red blood cells, she was 9.4 g/dL, but on repeat 7.9, which would be more in line with an unexpected improvement after 1 unit of packed red blood cells. She had a normal white blood cell count and platelets. The patient underwent EGD with Dr. Laws, who found 2 areas of adherent clots in the proximal jejunum near her prior anastomosis site. There was no active bleeding at that time, but it was quite clear that those areas had been bleeding previously. The patient was treated with a Protonix drip and her hemoglobin remained stable throughout her hospitalization. She was transfused 1 unit of additional packed red blood cells prior to discharge for a total of 2 during this admission. DISPOSITION AND FOLLOWUP PLAN: The patient is being discharged to home in stable condition. The patient is discharged on b.i.d. PPI therapy and has planned followup with Dr. Ralph for 12/24/18. Recommended that she has a repeat CBC completed on 12/24/18, to ensure stability. Her anticoagulation has been held at this time as well as aspirin and her oral chemotherapy, Mekinist. She does have a history of an SVC thrombus and continuing anticoagulation is pertinent, but not emergent as this was approximately 3 years ago. Recommend that she continue off of anticoagulation for 1 to 2 weeks and if blood counts remain stable, then can resume anticoagulation with Lovenox with close monitoring of hemoglobin. If hemoglobin remains stable for 2 weeks on Lovenox, she could be transitioned back to an oral anticoagulant, either Coumadin or Eliquis. These treatment decisions will be per her pillowcase cleaner at [facility], Dr. Ralph, but she is available to follow up locally at Dr. Dan's office if necessary and/or more convenient. DIGNA LAMAS [id number]/[facility] #: [id number] NICK
[2018-12-22] MEDS: HYDROmorphone TAB* 2 MG PO PRN (15:42)
--- NOTE | 2018-12-22 16:26 | PN ---
Progress Note - Progress Note Date of Service: 12/22/18 Note: BRIEF GI FOLLOW-UP IE/S: - EGD yesterday demonstrated two linear areas of clotted blood in jejunum ( immediately distal to anastomosis). Gentle lavage attempted to dislodge the clots without success. No endoscopic therapy placed given absence of clear target. - CBC remains stable. - No bowel movements. - Patient feels well. Eager to go home as she is traveling to [facility] tomorrow to see her oncologist. O: VSS Patient comfortable. NAD. Breathing comfortably. Labs reviewed: Hgb 7.6 > 7.8 A/P: Ms Womack is a 53yF w/ pancreatic cancer s/p Whipple and now on salvage chemotherapy as well as prior SVC thrombus on anticoagulation, who is admitted with acute on chronic anemia and melena c/w UGIB. EGD demonstrated two linear areas of clotted blood in jejunum. Unclear etiology of the bleeding lesions as clot was unable to be gently dislodged, although differential includes: ulcer and AVM. Patient doing well currently without evidence of recurrent bleeding. - Patient receiving additional unit of blood prior to discharge - Continue IV PPI until discharged then PPI BID - Continue to hold anticoagulation for now as thrombus was several years ago. - Will reach out to patient re: possible repeat EGD in 2 weeks or so to reassess the clotted areas. Possible that I will be able to get a better idea about bleeding source once clots have had a chance to stabilize and slowly resolve. This information would hopefully be able to help inform risk discussion in regards to restarting anticoagulation. - Reviewed with patient indications to present to ED, which include: Recurrent melena, hematemesis, dizziness, syncope, chest pain, shortness of breath, etc. Patient expresses understanding. Glo Laws MD Gastroenterology
[2018-12-22 20:34] VITALS: BP 111/86
== END 2018-12-22 20:20 | disposition home or self-care (01) | DRG 378 ==
LOC: ED 22:03 → MED 12-21 00:20
PROVIDERS: ADMIT Internal Medicine; ATTEND Physician Assistant
PROC: 3E1G88Z Irrigation of Upper GI using Irrigating Substance, Via Natural or Artificial Opening Endoscopic (ICD-10-PCS; principal; 2018-12-21)
PROC: 30233N1 Transfusion of Nonautologous Red Blood Cells into Peripheral Vein, Percutaneous Approach (ICD-10-PCS; 2018-12-22)
DX: K92.1 Melena (principal); C25.9 Malignant neoplasm of pancreas, unspecified; C79.51 Secondary malignant neoplasm of bone; D62 Acute posthemorrhagic anemia; E03.9 Hypothyroidism, unspecified; G47.33 Obstructive sleep apnea (adult) (pediatric); K21.9 Gastro-esophageal reflux disease without esophagitis; M06.9 Rheumatoid arthritis, unspecified; M79.7 Fibromyalgia; L93.0 Discoid lupus erythematosus; G89.3 Neoplasm related pain (acute) (chronic); H91.90 Unspecified hearing loss, unspecified ear; G89.4 Chronic pain syndrome; F41.9 Anxiety disorder, unspecified; F32.9 Major depressive disorder, single episode, unspecified; Z82.49 Family history of ischemic heart disease and other diseases of the circulatory system; Z88.8 Allergy status to other drugs, medicaments and biological substances; Z86.711 Personal history of pulmonary embolism; Z87.891 Personal history of nicotine dependence; Z90.49 Acquired absence of other specified parts of digestive tract; Z82.0 Family history of epilepsy and other diseases of the nervous system
CPT/HCPCS: 36415; 80048; 80053; 80076; 85014; 85018; 85025; 85060; 85610; 85730; 86078; 86850; 86900; 86901; 86922; 93005; 99156; 99157; A9270-GY; J2250; J2997; J3010; P9040